=== PATIENT | female | born 1960 | race Caucasian/White ===

== ENCOUNTER 2019-03-25 11:12 | Outpatient (CLI) | payer OTHER, BC, SELFPAY ==
--- NOTE | ~2019-03-25 | MM_ITS ---
EXAMINATION: MM screening [facility] BI w ranjit HISTORY: Screening mammogram TECHNIQUE: Craniocaudal and mediolateral oblique 3-D tomosynthesis images were obtained and synthetic 2-D images were generated. CAD analysis was submitted and interpreted. COMPARISON: 02/19/2018, 01/28/2017, 01/26/2016 BREAST PARENCHYMAL COMPOSITION: The breasts are almost entirely fatty. FINDINGS: Stable masses in the upper outer quadrant of the right breast are consistent with intramamm roger lymph nodes. There is no evidence of suspicious mass, calcification, or architectural distortion to suggest malignancy in either breast. There has been no suspicious interval change. IMPRESSION: 1. No mammographic evidence of malignancy. 2. Recommend routine screening mammography in one year. BI-RADS Category 2: Benign finding(s). Reviewed, dictated and finalized at location A. ANNEALER
== END 2019-03-25 11:13 | disposition home or self-care (01) ==
LOC: ANHIMG 11:17
PROVIDERS: PCP Physician Assistant; Visit Provider Physician Assistant
DX: Z12.31 Encounter for screening mammogram for malignant neoplasm of breast (principal)
CPT/HCPCS: 77063; 77067

== ENCOUNTER 2020-04-20 09:12 | Outpatient (CLI) | payer OTHER, BC, SELFPAY ==
--- NOTE | ~2020-04-20 | MM_ITS ---
EXAMINATION: MM screening [facility] BI w ranjit HISTORY: Screening TECHNIQUE: Craniocaudal and mediolateral oblique 3-D tomosynthesis images were obtained and synthetic 2-D images were generated. CAD analysis was submitted and interpreted. COMPARISON: Comparison to multiple prior studies sequentially, with oldest reviewed study dated 11/19. BREAST PARENCHYMAL COMPOSITION: There are scattered areas of fibroglandular density. FINDINGS: There is no evidence of suspicious mass, calcification, or architectural distortion to sugg est malignancy in either breast. There has been no suspicious interval change. IMPRESSION: 1. No mammographic evidence of malignancy. 2. Recommend routine screening mammography in one year. BI-RADS Category 1: Negative Reviewed, dictated and finalized at location A. [employer]
== END 2020-04-20 09:13 | disposition home or self-care (01) ==
LOC: ANHIMG 09:17
PROVIDERS: PCP Physician Assistant; Visit Provider Physician Assistant
DX: Z12.31 Encounter for screening mammogram for malignant neoplasm of breast (principal)
CPT/HCPCS: 77063; 77067

== ENCOUNTER 2021-04-24 05:09 | Inpatient (IN) | payer OTHER, BC, SELFPAY ==
[2021-04-24] VITALS (19 sets, daily range): BP systolic 118–157; BP diastolic 69–131; PULSE 74–164; RESP 12–18; TEMP 36–36.6; O2SAT 94–99; BMI 42.0
--- NOTE | 2021-04-24 | ECHO_ITS ---
Patient Info Name: Allie Doe Age: 60 years : 1960 Gender: Female Ht: 69 in Wt: 284 lbs BSA: 2.57 m2 HR: 163 bpm BP: 150 / 112 mmHg Heart Rhythm: Atrial Fibrillation Technical Quality: Fair Exam Date: 04/24/2021 3:36 PM Exam Location: [facility] Pulmonary Patient Status: Outpatient Admit Date: 04/24/2021 Staff Ordering Physician: Trey Lozano MD Centrifuge Operator: Cony Astorga RDCS Attending Provider: Trey Lozano MD Exam Type: CA echo doppler color flow Study Info Indications - Afib Complete two-dimensional, color flow and Doppler transthoracic echocardiogram is performed. Summary 1. Complete two-dimensional, color flow and Doppler transthoracic echocardiogram is performed. 2. Left ventricular chamber dimension is normal. 3. Left ventricular systolic function is normal, estimated at 55%. 4. There is mildly increased left ventricular wall thickness. 5. Left atrial chamber dimension is mildly enlarged. 6. There is no aortic valve stenosis. 7. There is mild mitral valve regurgitation. 8. There is trace tricuspid valve regurgitation. 9. Mild pulmonary hypertension, estimated pulmonary arterial systolic pressure is 35 mmHg. Left Ventricle Left ventricular chamber dimension is normal. Left ventricular systolic function is normal, estimated at 55%. There is mildly increased left ventricular wall thickness. The left ventricular diastolic function is indeterminate. Right Ventricle Right ventricular chamber dimension is normal. Right ventricular systolic function is normal. Left Atria Left atrial chamber dimension is mildly enlarged. Right Atria Right atrial chamber dimension is normal. Aortic Valve The aortic valve is not well visualized. There is no aortic valve stenosis. There is trace aortic valve regurgitation. Pulmonic Valve The pulmonic valve is not well visualized. There is trace pulmonic regurgitation. Mitral Valve The mitral valve has normal leaflets. There is mild mitral valve regurgitation. The mitral valve annulus is mildly calcified. Tricuspid Valve The tricuspid valve leaflets are normal. There is trace tricuspid valve regurgitation. Mild pulmonary hypertension, estimated pulmonary arterial systolic pressure is 35 mmHg. Pericardium/Pleural The pericardium appears normal. There is no pericardial effusion. Inferior Vena Cava Dilated inferior vena cava with <50% collapse upon inspiration consistent with elevated right atrial pressure, 10 mmHg. Aorta The aortic root size at the sinus of Valsalva is normal. There is mild aortic atherosclerosis. Left Ventricular Outflow Tract Name Value Normal LVOT 2D LVOT Diameter 2.0 cm LVOT Doppler LVOT Peak Gradient 5 mmHg LVOT Mean Gradient 3 mmHg LVOT VTI 18 cm LVOT VTI/AV VTI Ratio 0.8 LVOT Stroke Volume 55 ml LVOT CO 6.5 l/min LVOT CI 2.5 l/min/m2 Pulmonic Valve --
--- NOTE | ~2021-04-24 | US_ITS ---
EXAMINATION: US venous doppler [facility] DATE: 04/24/2021 12:30 INDICATION: Lower limb edema. TECHNIQUE: Grayscale ultrasound images without and with compression and Doppler ultrasound images of the bilateral lower extremity veins were obtained. COMPARISON: None. FINDINGS: The visualized portions of right common femoral vein, profunda (deep) femoral vein, femoral vein, pop liteal vein, peroneal veins, posterior tibial veins, and greater saphenous vein outflow are patent. The visualized portions of left common femoral vein, profunda femoral vein, femoral vein, popliteal v ein, peroneal veins, posterior tibial veins, and greater saphenous vein outflow are patent. IMPRESSION: 1. No deep venous thrombosis. Reviewed, dictated and finalized at location A. IT SUPPORT COUNSELOR
--- NOTE | ~2021-04-24 | XR_ITS ---
EXAMINATION: XR chest 1V portable DATE: 04/24/2021 05:59 INDICATION: Chest pain. TECHNIQUE: A single frontal view of the chest was obtained. COMPARISON: CT abdomen and pelvis 07/11/2016 FINDINGS: There is mild atelectasis in left lower lung zone. No pleural effusion or pneumothorax. The heart size is normal. IMPRESSION: 1. Mild atelectasis in left lower lung zone. Reviewed, dictated and finalized at location A. DIESEL MOTOR MECHANIC
--- NOTE | ~2021-04-24 | CT_ITS ---
EXAMINATION: CTA chest PE protocol DATE: 04/24/2021 06:52 INDICATION: Shortness of breath. TECHNIQUE: Computed tomography angiography (CTA) of the chest was performed with 100 mL Omnipaque-350 intravenous contrast timed to evaluate the pulmonary arteries. Coronal maximum intensity projection 3D-reconstructions were created by the technologist. Automated exposure control and iterative reconst ruction technique were employed. The dose-length product was 874.36 mGy-cm. COMPARISON: CT abdomen and pelvis 07/11/2016 FINDINGS: The lungs demonstrate smooth septal thickening and groundglass opacities and thickening of the perihilar bronchopulmonary interstitium, consistent with pulmonary edema. There are small pleural effusions. There is a 4 mm nodule in right upper lobe, likely benign. A calcified right lung nodule and calcified right hilar lymph nodes are consistent with old granulomatous disease. There is left at rial enlargement of the heart. There are coronary artery calcifications. The central pulmonary arteri es are enlarged, consistent with pulmonary arterial hypertension. There is no pulmonary embolus. Calc ifications in the spleen are consistent with old granulomatous disease. There are changes of cholecys tectomy. There is mild thoracic spondylosis. IMPRESSION: 1. No pulmonary embolus. 2. Moderate pulmonary edema. 3. Small pleural effusions. 4. Left atrial enlargement of the heart. Reviewed, dictated and finalized at location A. [employer]
--- NOTE | 2021-04-24 05:20 | ECG_ITS ---
Measurements Intervals Theresa Rate: 173 P: SD: 0 QRS: 49 QRSD: 81 T: -38 QT: 248 QTc: 421 Interpretive Statements ATRIAL FIBRILLATION WITH RAPID VENTRICULAR RESPONSE NONSPECIFIC ST & T-WAVE ABNORMALITY ABNORMAL ECG NO PREVIOUS ECG AVAILABLE FOR COMPARISON Electronically Signed On 04-24-2021 14:07:19 LIGHTING FIXTURE INSTALLER by Lorne Gold M.D.
[2021-04-24 05:41] LABS: Basophils Absolute Auto 0.1 K/mm3 (0.0-0.1); Basophils Percent Auto 1.1 % (0.2-1.2); Eosinophils Absolute Auto 0.2 K/mm3 (0-0.3); Eosinophils Percent Auto 2.1 % (0-4.4); Hematocrit 40.2 % (37.0-47.0); Immature Granulocyte Absolute 0.05 K/mm3 (0.00-0.031); Immature Granulocyte Percent A 0.4 % (0-0.5); Lymphocytes Absolute Auto 2.53 K/mm3 (0.9-3.2); Lymphocytes Percent Auto 22.6 % (18.3-44.2); Mean Corpuscular HGB Conc 32.3 g/dl (32-36); Mean Corpuscular Hemoglobin 29.2 pg (26-34); Mean Corpuscular Volume 90.3 fl (80-100); Monocytes Absolute Auto 0.8 K/mm3 (0.1-0.6); Monocytes Percent Auto 7.1 % (2.6-8.5); Neutrophils Absolute Auto 7.5 K/mm3 (1.3-6.7); Neutrophils Percent Auto 66.7 % (45.5-73.1); Platelet Count Result 267 k/mm3 (150-375); Red Blood Count 4.45 M/mm3 (4.2-5.4); Red Cell Distribution Width 13.5 % (11.5-14.5); White Blood Count 11.2 K/mm3 (4.5-10.0)
--- NOTE | 2021-04-24 05:45 | ED.SOB ---
HPI - SOB/Dyspnea General Chief Complaint: Shortness of Breath/Dyspnea Stated Complaint: feel like I'm having a really bad asthma attack Time Seen by Provider: 04/24/21 05:40 Source: patient Mode of arrival: ambulatory Limitations: no limitations History of Present Illness HPI Narrative: Patient is a 60-year-old female complaining of shortness of breath x1 and a half week, accompanied by palpitations this morning. Patient denies any chest pain, abdominal pain, nausea, vomiting, diaphoresis, fever or chills. Patient denies any history of atrial fibrillation. Related Data Home Medications Medication Instructions Recorded Confirmed candesartan 04/24/21 metformin mg PO 04/24/21 Allergies Allergy/AdvReac Type Severity Reaction Status Date / Time No Known Allergies Allergy Verified 04/24/21 05:32 Review of Systems Review of Systems: All systems reviewed & are unremarkable except as noted in HPI and below Constitutional: Constitutional: Denies body ache(s), Denies chills, Denies excessive sweating, Denies fatigue, Denies fever(s), Denies headache(s), Denies lethargy, Denies malaise, Denies weakness and Denies weight loss Eyes: Eyes: Denies blurry vision, Denies change in vision and Denies loss of vision ENT: Denies dizziness, Denies ear discharge, Denies headache(s), Denies lip swelling, Denies epistaxis, Denies nasal congestion, Denies neck pain, Denies throat swelling and Denies tongue swelling Cardiovascular: Cardiovascular: Denies chest pain, Denies chest pain at rest, Denies chest pain with activity, Denies diaphoresis, Denies edema, Denies irregular heart rhythm, Denies lightheadedness and Denies palpitations Respiratory: Respiratory: Denies chest congestion, Denies cough and Denies hemoptysis Gastrointestinal: Gastrointestinal: Denies abdominal pain, Denies melena, Denies hematochezia, Denies diarrhea, Denies nausea, Denies vomiting and Denies hematemesis Musculoskeletal: Musculoskeletal: Denies abnormal gait, Denies deformity, Denies joint swelling, Denies limited range of motion, Denies neck pain and Denies numbness Neurologic: Denies Abnormal speech present, Denies abnormal gait, Denies confusion, Denies dizziness, Denies headache(s), Denies focal weakness, Denies loss of vision, Denies numbness, Denies Other visual disturbances, Denies Sensory deficit (Neuro) and Denies weakness Psychiatric: Psychiatric: Denies confusion, Denies depression, Denies auditory hallucinations, Denies homicidal ideation and Denies suicidal ideation Endocrine: Endocrine: Denies cold intolerance, Denies excessive sweating, Denies fatigue, Denies heat intolerance and Denies palpitations Hematologic/Lymphatic: Hematologic/Lymphatic: Denies easy bleeding and Denies easy bruising Allergic/Immunologic: Allergic/Immunologic: Denies lip swelling, Denies throat swelling and Denies tongue swelling FOR[facility]LY [facility], [facility] Family History Family History (Updated 10/19/10 @ 09:39 by DOCTOR UNKNOWN) Other Diabetes mellitus Social History Social History Smoking status: Never smoker Alcohol intake: current Comments Past medical history: Hypertension, diabetes Family history: Atrial fib, diabetes Social history: Non-smoker no EtOH or drug use Exam Const: General: cooperative, healthy appearing, comfortable, no acute distress, well developed, alert and awake; No confusion Orientation/consciousness: oriented to person, oriented to place, oriented to time, patient oriented x3 and No confusion Limitations: no limitations HENMT: Head: normal to inspection, normocephalic and atraumatic Ears: hearing grossly normal bilaterally, TM normal on the right and TM normal on the left General nose exam: Normal external nose present, Normal nares present and No nasal discharge present Face and sinus: normal facial exam Mouth: Yes Normal oral and palatal mucosa present, Yes lip normal, Yes tongue normal and Yes oropharynx normal Throat: posterior oropharynx n
[2021-04-24 05:49] LABS: Alanine Aminotransferase 137 U/L (4-35); Albumin Level 4.1 g/dL (3.5-5.1); Alkaline Phosphatase 85 U/L (38-126); Anion Gap 10 mmol/L (8-16); Aspartate Amino Transferase 84 U/L (14-36); Bilirubin,Total 0.6 mg/dL (0.2-1.3); Blood Urea Nitrogen 15 mg/dL (7-17); Calcium 9.4 mg/dL (8.4-10.2); Carbon Dioxide 23 mmol/L (22-30); Chloride 108 mmol/L (98-107); Estimated CRCL calculation 97 ml/min; Estimated Glomerular Filt Rate > 60; Glucose 141 mg/dL (65-110); Potassium 3.7 mmol/L (3.4-5.0); Sodium 141 mmol/L (137-145)
[2021-04-24] MEDS: LACTATED RINGERS 1,000 ML 999 ML IV CONT (05:49)
[2021-04-24] MEDS: dilTIAZem HCl INJ 25 MG/5 ML VIAL 20 MG IV PUSH (05:50)
--- NOTE | 2021-04-24 05:52 | PC.NURSE ---
per EDP tiffanei single bolus of cardizem to be given at this time, no drip.
[2021-04-24 06:13] LABS: Prothrombin Time 12.6 Seconds (11.1-14.7)
[2021-04-24 06:14] LABS: Partial Thromboplastin Time 32.3 SECONDS (22.3-36.8)
[2021-04-24 06:16] LABS: D Dimer 0.93 ug/mL (<0.48)
[2021-04-24 06:18] LABS: Troponin I < 0.012 ng/mL (0.000-0.034)
[2021-04-24 06:38] LABS: SARS-CoV-2 RNA PCR Negative
[2021-04-24] MEDS: dilTIAZem 100 MG/100 ML 100 MG/100 ML BAG IV CONT (07:09)
[2021-04-24] MEDS: FUROSEMIDE INJ 40 MG/4 ML VIAL IV PUSH ×2 (07:30→16:26)
[2021-04-24] MEDS: dilTIAZem HCl INJ 25 MG/5 ML VIAL 10 MG IV PUSH (07:30)
[2021-04-24] MEDS: dilTIAZem 100 MG/100 ML 100 MG/100 ML BAG 10 MG IV CONT ×2 (07:48→12:00)
--- NOTE | 2021-04-24 08:46 | ADMGEN ---
This patient, Allie Doe, was admitted to IMU Room 206-01. Patient/family oriented to hospital policies and general routines including ID bracelet, bed and alarms, visiting hours, pain management, procedures, bathroom and other care routines, personal items, smoking policy, room service/diet, and visiting hours. Information on how to activate the Rapid Response Team has been discussed. Patient/Family are encouraged to report perceived risks to care and to ask questions if they do not understand what they are told or what they should do.
--- NOTE | 2021-04-24 10:47 | PM.IMHP ---
H&P: HPI History of Present Illness Date/Time: PATIENT ADMITTED UNDER OBSERVATION STATUS 04/24/21 10:47 Chief Complaint: Shortness of breath Narrative: 60yo female with HTN and pre-DM here for shortness of breath and found to have AFib/RVR. Patient states her symptoms began about 10 days prior to admission. She initially had explosive diarrhea but this has resolved. No melena or hematochezia. She had a colonoscopy 6 years ago that was negative. She is up-to-date on her mammograms. For the next few days she had myriad of symptoms including belching, chest tightness and shortness of breath. She is also having difficulty with lying flat because of shortness of breath. No weight changes. No night sweats, fever or chills. Symptoms improved initially but then worsened over the past day or so again with the chest tightness that was worse with laying flat. No anosmia or dysgeusia. She is unvaccinated against COVID. No history of coronary disease. She has never had a stress test. She has pre diabetes and hypertension but no hyperlipidemia and no tobacco abuse. She does mention that both parents had AFib. She does note that she has had some mild pedal edema left greater than right. No calf pain. Because of the shortness of breath and chest tightness, she presented to the emergency room for evaluation. In the ED, blood pressure is 157/131 and her pulse was 160. Chest x-ray showed mild atelectasis in the left lower lung zone. D-dimer was positive and CTA was performed which showed no PE but moderate pulmonary edema, small pleural effusions and left atrial enlargement. LFTs are mildly elevated. COVID was negative. EKG showing AFib with RVR rate [address] T wave changes. She was given Lasix IV once. Was started on diltiazem drip and admitted for further care. Her heart rate remains poorly controlled. She denies palpitations and actually feels better now. Review of Systems Review of Systems: All systems reviewed & are unremarkable except as noted in HPI and below PMFSH Past Medical History Medical History HTN (hypertension), benign Pre-diabetes Surgical History Surgical History Hx of section with C/S x1. Hx of cholecystectomy Hx of nasal polypectomy Hx of tonsillectomy Family History Family History Mother Atrial arrhythmia Father Atrial arrhythmia Lymphoma Grandparent Diabetes mellitus Father No problems noted. Social History Social History Social History: Lifelong nonsmoker. Rarely drinks alcohol. No drug use. Lives at home with her . Full code. She nominates her to be the individual who would make medical decisions for her if she is unable. Smoking status: Never smoker Alcohol intake: never Substance use: never Spiritual care concerns: No Meds Home Medications and Allergies Home Medications Medication Instructions Recorded Confirmed Type candesartan 32 mg PO DAILY 04/24/21 04/24/21 History metformin 1,000 mg PO 1700 04/24/21 04/24/21 History Allergies Allergy/AdvReac Type Severity Reaction Status Date / Time No Known Allergies Allergy Verified 04/24/21 05:32 Vital Signs Vital Signs - 24 hr 04/24/21 05:18 04/24/21 06:58 04/24/21 07:09 Temperature 97.0 F L Pulse Rate 160 H 149 H 164 H Respiratory Rate 12 18 Blood Pressure 157/131 H 146/114 H 139/108 H Pulse Oximetry 98 98 04/24/21 07:35 04/24/21 07:48 04/24/21 08:14 Temperature Pulse Rate 150 H 156 H 146 H Respiratory Rate 17 16 Blood Pressure 150/100 H 150/100 H Pulse Oximetry 98 95 Exam Narrative: AF 97.0 150/100 146 16 95% ra Gen - well-nourished, well-developed female in no acute respiratory distress who is
[2021-04-24 12:19] LABS: Hemoglobin A1C 5.3 % (<5.7)
[2021-04-24 12:23] LABS: Troponin I < 0.012 ng/mL (0.000-0.034)
[2021-04-24 12:54] LABS: Hepatitis B Surface Antigen Negative (Negative)
[2021-04-24 13:00] LABS: HAV RESULT Negative (Negative); Hepatitis B Core IgM Result Negative (Negative)
--- NOTE | 2021-04-24 13:02 | PM.CNCAR ---
Assessment and Plan Assessment and plan (1) Atrial fibrillation with RVR: Code(s): I48.91 - Unspecified atrial fibrillation Status: Acute Assessment and Plan: Symptomatic refractory probable recent onset atrial fibrillation with rapid ventricular response although precise duration remains unknown prior to admission. Increase diltiazem infusion to 15 milligrams/hour for proved heart rate control, increase metoprolol 37.5 mg q.8 hours. Given refractory AFib with poorly controlled heart rate discussed management options including medications and or electrical cardioversion to restore sinus rhythm. Given unknown duration of atrial fibrillation DULCE guided cardioversion to exclude intracardiac thrombus prior to cardioversion advised. Patient and daughter verbalized understanding and agreed to proceed with the plan of care as outlined. NPO after midnight for DULCE guided cardioversion. Patient must receive her Eliquis and oral metoprolol. Plan to hold diltiazem prior to cardioversion. 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 We discussed cannot entirely exclude underlying CAD, however, there is no evidence of myocardial infarction or ischemia at present. Will give additional potassium chloride 40 mg p.o. x1 today. Check BMP magnesium in a.m.. Pathophysiology of atrial fibrillation, risks, benefits, and alternatives to plan of care including embolic stroke risk associated atrial fibrillation and risk reduction was systemic anticoagulation and associated bleeding risk. CHADS2 Vasc score at least 3. (2) Acute pulmonary edema: Code(s): J81.0 - Acute pulmonary edema Status: Acute Assessment and Plan: Continue IV diuresis. Accurate input and output, daily weight. Monitor renal function electrolytes. Provided patient is stable for DULCE guided cardioversion will plan to proceed tomorrow. (3) HTN (hypertension), benign: Code(s): I10 - Essential (primary) hypertension Status: Acute Assessment and Plan: BP remains elevated further adjustment medical therapy. Add ARB. Renal function intact. (4) Elevated LFTs: Code(s): R79.89 - Other specified abnormal findings of blood chemistry Status: Acute Assessment and Plan: Likely secondary to hepatic congestion decompensated heart failure. Per primary service. (5) Morbid obesity with BMI of 40.0-44.9, adult: Code(s): E66.01 - Morbid (severe) obesity due to excess calories; Z68.41 - Body mass index [BMI] 40.0-44.9, adult Status: Acute Assessment and Plan: Less than modification counseling. Apnea link overnight to screen for [place]. History of Present Illness History of Present Illness Consult date/time: Date of service: 04/24/21 13:02 Cardiology consultation at the request of Dr. Lozano of the [facility] service for opinion regarding atrial fibrillation with rapid ventricular response Requesting physician: Trey Lozano MD Consult reason: atrial fibrillation Reason For Visit: Atrial fib with RVR/acute pulmonary edema Narrative: Patient is a very pleasant 52-year-old female with a past medical history significant for hypertension, reported ?pre diabetes?, morbid obesity who was in her usual state of health when she noted for the past 10-14 days began to experience more fatigue, progressive shortness of breath, belching, and transient diarrhea. Her predominant symptoms were shortness of breath decreasing activity tolerance along with progressive orthopnea, lower extremity edema abdominal fullness finding herself sleeping more upright in a chair to remain comfortable. She denies fevers, chills. She noted occasional tightness worse lying down in her chest which has significantly improved. She notes occasional fluttering sensation but on a clear appreciation for a rapid and irregular heart
[2021-04-24] MEDS: METOPROLOL TARTRATE 25 MG TABLET PO (13:03)
[2021-04-24] MEDS: APIXABAN 5 MG TABLET PO ×2 (13:03→20:18)
[2021-04-24 13:12] LABS: Hepatitis C Virus Antibody Negative (Negative)
[2021-04-24 13:16] LABS: Glucose Point of Care 135 mg/dl (65-105)
[2021-04-24] MEDS: dilTIAZem 100 MG/100 ML 100 MG/100 ML BAG 15 MG IV CONT ×2 (16:28→23:06)
[2021-04-24 16:44] LABS: Glucose Point of Care 103 mg/dl (65-105)
[2021-04-24] MEDS: POTASSIUM CHLORIDE 20 MEQ TABLET 40 MEQ PO (18:17)
[2021-04-24 19:53] LABS: Glucose Point of Care 122 mg/dl (65-105)
--- NOTE | 2021-04-24 21:10 | PCRCNOTE ---
RT asked patient if they would participate in sleep apnea study test and explained the reason for testing. Patient stated they do not want to receive a sleep study test here but would be wiling to make arrangements for a different setting at another time.
[2021-04-25] VITALS (20 sets, daily range): BP systolic 117–160; BP diastolic 72–120; PULSE 74–147; RESP 16–18; TEMP 35.8–36.9; O2SAT 92–98
[2021-04-25 04:29] LABS: Basophils Absolute Auto 0.1 K/mm3 (0.0-0.1); Eosinophils Absolute Auto 0.3 K/mm3 (0-0.3); Eosinophils Percent Auto 3.2 % (0-4.4); Hematocrit 37.4 % (37.0-47.0); Hemoglobin 11.9 g/dL (12.0-15.0); Immature Granulocyte Absolute 0.05 K/mm3 (0.00-0.031); Immature Granulocyte Percent A 0.5 % (0-0.5); Lymphocytes Absolute Auto 2.38 K/mm3 (0.9-3.2); Lymphocytes Percent Auto 24.6 % (18.3-44.2); Mean Corpuscular HGB Conc 31.8 g/dl (32-36); Mean Corpuscular Hemoglobin 29.9 pg (26-34); Mean Platelet Volume 11.7 fl (7.4-10.4); Monocytes Absolute Auto 0.9 K/mm3 (0.1-0.6); Monocytes Percent Auto 8.8 % (2.6-8.5); Neutrophils Percent Auto 61.9 % (45.5-73.1); Platelet Count Result 231 k/mm3 (150-375); Red Blood Count 3.98 M/mm3 (4.2-5.4); Red Cell Distribution Width 13.9 % (11.5-14.5); White Blood Count 9.7 K/mm3 (4.5-10.0)
[2021-04-25 04:40] LABS: Alanine Aminotransferase 117 U/L (4-35); Albumin Level 3.5 g/dL (3.5-5.1); Alkaline Phosphatase 70 U/L (38-126); Anion Gap 7 mmol/L (8-16); Aspartate Amino Transferase 54 U/L (14-36); Bilirubin,Total 0.7 mg/dL (0.2-1.3); Blood Urea Nitrogen 14 mg/dL (7-17); Calcium 8.6 mg/dL (8.4-10.2); Carbon Dioxide 27 mmol/L (22-30); Chloride 108 mmol/L (98-107); Estimated CRCL calculation 109 ml/min; Estimated Glomerular Filt Rate > 60; Glucose 121 mg/dL (65-110); Magnesium 1.9 mg/dL (1.6-2.3); Potassium 3.9 mmol/L (3.4-5.0); Sodium 142 mmol/L (137-145)
[2021-04-25] MEDS: dilTIAZem 100 MG/100 ML 100 MG/100 ML BAG 15 MG IV CONT (05:38)
[2021-04-25 08:24] LABS: Glucose Point of Care 127 mg/dl (65-105)
[2021-04-25] MEDS: APIXABAN 5 MG TABLET PO ×2 (08:25→20:14)
--- NOTE | 2021-04-25 09:55 | PM.CNCAR ---
History of Present Illness History of Present Illness Consult date/time: 04/25/21 09:55 DATE OF CONSULT: 04/25/2021 REASON FOR CONSULT: AFib with RVR REQUESTING PHYSICIAN:Jessee Armenta MD CHIEF COMPLAINT: HPI: 60-year-old female with hypertension, type 2 diabetes mellitus. Patient presented to [facility] on EKG at presentation which I personally evaluated showed atrial fibrillation with RVR, ventricular rate 173 beats per minute. Serial troponins negative. COVID-19 negative. TSH within normal limits. Chest x-ray showed Mild atelectasis in left lower lung zone. CT chest reported No pulmonary embolus, moderate pulmonary edema, small pleural effusions. Echo perform on 04/24/2021 showed mild LVH, LVEF 55%, mild LVE, mild MR, RVSP 35 mmHg. Reason For Visit: Atrial fib with RVR/acute pulmonary edema Review of Systems Review of Systems: General: Negative for fever, chills, fatigue Psychological: Negative for anxiety, depression Ophthalmic: negative for loss of vision ENT: Negative for epistaxis, headaches Allergy and immunology: Negative for hives, nasal congestion Hematologic and lymphatic: Negative for overt bleeding problems Endocrine: Negative for hot flashes, palpitations Respiratory: Negative for cough, hemoptysis Cardiovascular: Negative for chest pain, shortness of breath, leg swelling, palpitations, dizziness, syncope Gastrointestinal: Negative for abdominal pain, nausea, vomiting, hematochezia Musculoskeletal: Negative for myalgia, joint pains Neurological: Negative for weakness Dermatological: Negative for rash, skin discoloration PMFSH Past Medical History Medical History HTN (hypertension), benign Pre-diabetes Surgical History Surgical History Hx of section with C/S x1. Hx of cholecystectomy Hx of nasal polypectomy Hx of tonsillectomy Family History Family History Mother Atrial arrhythmia Father Atrial arrhythmia Lymphoma Grandparent Diabetes mellitus Father No problems noted. Social History Social History Social History: Lifelong nonsmoker. Rarely drinks alcohol. No drug use. Lives at home with her . Full code. She nominates her to be the individual who would make medical decisions for her if she is unable. Smoking status: Never smoker Alcohol intake: never Substance use: never Spiritual care concerns: No Meds Home Medications and Allergies Home Medications Medication Instructions Recorded Confirmed Type candesartan 32 mg PO DAILY 04/24/21 04/24/21 History metformin 1,000 mg PO 1700 04/24/21 04/24/21 History Allergies Allergy/AdvReac Type Severity Reaction Status Date / Time No Known Allergies Allergy Verified 04/24/21 05:32 Vital Signs Vital Signs - 24 hr 04/24/21 10:00 04/24/21 11:49 04/24/21 12:00 Temperature 36.6 C Pulse Rate 157 H 137 H 163 H Respiratory Rate 18 Blood Pressure 150/112 H Pulse Oximetry 98 04/24/21 14:00 04/24/21 16:00 04/24/21 16:40 Temperature 36.1 C L Pulse Rate 135 H 125 H 74 Respiratory Rate 16 18 Blood Pressure 143/88 H Pulse Oximetry 97 96 04/24/21 18:00 04/24/21 20:00 04/24/21 20:05 Temperature 36.0 C L Pulse Rate 138 H 122 H 107 H Respiratory Rate 18 Blood Pressure 118/69 Pulse Oximetry 96 04/24/21 20:18 04/24/21 20:35 04/24/21 22:00 Temperature Pulse Rate 126 H 122 H Respiratory Rate Blood Pressure Pulse Oximetry 94 04/24/21 23:06 04/25/21 00:00 04/25/21 02:00 Temperature 36.0 C L Pulse Rate 102 H 108 H 104 H Respiratory Rate 18 Blood Pressure 123/85 Pulse Oximetry 96 04/25/21 04:00 04/25/21 05:11 04/25/21 05:37 Temperature 35.8 C L Pulse Rate 131 H 122 H 119 H Respiratory Rate 18
--- NOTE | 2021-04-25 10:49 | WPDMODSED ---
Moderate Sedation Note-Pt Data Patient Data Diagnosis: Atrial fibrillation with rapid ventricular response Present Complaint: Fatigue Procedure to be performed/Plan: Transesophageal echocardiogram guided elective electrical cardioversion Allergies Allergy/AdvReac Type Severity Reaction Status Date / Time No Known Allergies Allergy Verified 04/24/21 05:32 Home Medications Medication Instructions Recorded Confirmed Type candesartan 32 mg PO DAILY 04/24/21 04/24/21 History metformin 1,000 mg PO 1700 04/24/21 04/24/21 History Current Medications: Active Medications Apixaban (Apixaban 5 Mg Tablet) 5 mg PO Q12HR [facility] Last Admin: 04/25/21 08:25 Dose: 5 mg Documented by: Furosemide (Furosemide Inj 40 Mg/4 Ml Vial) 40 mg IV PUSH BID [facility] Last Admin: 04/24/21 16:26 Dose: 40 mg Documented by: Diltiazem HCl (Cardizem 100 Mg/100 Ml) 100 mg in 100 mls @ 15 mls/hr IV CONT .[id number] [facility] Last Admin: 04/25/21 05:38 Dose: 15 mg/hr, 15 mls/hr Documented by: Metoprolol Tartrate 12.5 mg/ (Metoprolol Tartrate 25 mg) 37.5 mg PO Q8HR [facility] Last Admin: 04/25/21 05:37 Dose: 37.5 mg Documented by: Perflutren Lipid Microsphere (Perflutren Lipid Microspheres 1.5 Ml Vial Diluted To 10 Ml Total Volume) 0 ml IV PUSH ONCE PRN; Protocol PRN Reason: adequate visualization Sedation/Anesthesia: No previous sedation/anesthesia problems (including family history). [facility] Past Medical History Medical History HTN (hypertension), benign Pre-diabetes Surgical History Surgical History Hx of section with C/S x1. Hx of cholecystectomy Hx of nasal polypectomy Hx of tonsillectomy Family History Family History Mother Atrial arrhythmia Father Atrial arrhythmia Lymphoma Grandparent Diabetes mellitus Father No problems noted. Social History Social History Social History: Lifelong nonsmoker. Rarely drinks alcohol. No drug use. Lives at home with her . Full code. She nominates her to be the individual who would make medical decisions for her if she is unable. Smoking status: Never smoker Alcohol intake: never Substance use: never Spiritual care concerns: No Mod Sed Physical Exam Physical Exam Pre Procedural Exam: Normal: Appearance, Eyes, Ears, Nose, Neck (Neck supple, normal range of motion), Throat (Posterior hypopharynx clear, nonerythematous), Airway (Normal anatomy, no obstruction), Lungs (Clear to auscultation bilaterally), Heart Size, Neuro Exam, Abdomen, Liver, Extremities and Skin and Variation: Heart Rate (Tachycardic) and Heart Rhythm (Irregularly irregular) Hours since solid foods: 12 Hours since liquid intake: 12 Mallampati Classification: class III Internal Medicine - PN: Obj Da Vital Signs Vital Signs: Vital Signs - 24 hr 04/24/21 11:49 04/24/21 12:00 04/24/21 14:00 Temperature 36.6 C Pulse Rate 137 H 163 H 135 H Respiratory Rate 18 Blood Pressure 150/112 H Pulse Oximetry 98 04/24/21 16:00 04/24/21 16:40 04/24/21 18:00 Temperature 36.1 C L Pulse Rate 125 H 74 138 H Respiratory Rate 16 18 Blood Pressure 143/88 H Pulse Oximetry 97 96 04/24/21 20:00 04/24/21 20:05 04/24/21 20:18 Temperature 36.0 C L Pulse Rate 122 H 107 H 126 H Respiratory Rate 18 Blood Pressure 118/69 Pulse Oximetry 96 04/24/21 20:35 04/24/21 22:00 04/24/21 23:06 Temperature Pulse Rate 122 H 102 H Respiratory Rate Blood Pressure Pulse Oximetry 94 04/25/21 00:00 04/25/21 02:00 04/25/21 04:00 Temperature 36.0 C L Pulse Rate 108 H 104 H 131 H Respiratory Rate 18 Blood Pressure 123/85 Pulse Oximetry 96 04/25/21 05:11 04/25/21 05:37 04/25/21 05:38 Temperature 35.8 C L Pulse Rate 122 H 119 H 11
--- NOTE | 2021-04-25 12:11 | WPDTECDV ---
DULCE with Cardioversion Date of procedure: 04/25/21 Procedure Type: Transesophageal echocardiogram guided elective electrical cardioversion Diagnosis: Atrial fibrillation with rapid ventricular response Indications: Atrial fibrillation with rapid ventricular response Description of Procedure: Brief history present illness: Patient is a very pleasant 60-year-old female with past medical history significant for hypertension, prediabetes, morbid obesity who presented to the emergency department with complaints of fatigue, shortness of breath, belching transient chest tightness, orthopnea and lower extremity edema found to be in atrial fibrillation with very rapid ventricular response refractory to medical therapy started on systemic anticoagulation and referred for transesophageal echocardiogram-guided elective electrical cardioversion in attempt to restore sinus rhythm. Procedure in detail: After verbal and written informed consent was obtained the patient risks, benefits, and alternatives explained in detail the patient agreed to proceed with the plan of care as outlined above. Patient was evaluated at bedside in the [facility] procedure room. On examination, neck was supple with normal range of motion, no restrictions to opening of the oral cavity, jaw angle and posterior hypopharynx was clear. Lungs were clear to auscultation. Patient was placed in appropriate 30 to 45 degree angle in a supine, slight left lateral decubitus position. Patient was monitored throughout the study with telemetry, oxygen saturation, end-tidal CO2 monitoring, blood pressure, heart rate, and respirations. Anterior and posterior defibrillator pads placed in the appropriate positions. The posterior hypopharynx was then locally anesthetized using repeated administration of Hurricaine spray as well as gargled viscous lidocaine. After local anesthetic of the posterior hypopharynx was achieved and the oral bite block placed, moderate sedation was administered. Through the oral bite block, the transesophageal echocardiogram probe was advanced into the posterior hypopharynx and into the esophagus easily and without complication. Multiple, multiplanar echocardiographic images were obtained in multiple standard re-projections. Pulsed wave, continuous-wave, and color-flow Doppler were utilized in conjunction with this study. At the conclusion of the study, the transesophageal echocardiogram probe was removed easily and without complication. Patient tolerated the procedure well without difficulty. Patient was in atrial fibrillation throughout the study. Sedation: Moderate Sedation/Anesthesia administration: Patient denied previous intolerance or complications with anesthesia/sedation. Please see sedation note for documentation of the pre-procedure physical examination. As noted above, after adequate local anesthesia of the posterior hypopharynx was achieved, a total of 5mg intravenous Versed and a total of 125 mcg intravenous Fentanyl in multiple divided doses was utilized for moderate sedation. Sedation start time was 1102 and end time was 1118 for a total of 16 minutes [id number] intra-procedure time. Sedation was administered by a qualified observer Trinh Ulloa RN under my supervision with intra-procedure [id number] observation and management throughout the entirety of the procedure. There were no other issues or complications and patient tolerated the procedure well and sedation protocol well and I was present for the entirety. Findings: FINDINGS: LEFT VENTRICLE: Size and systolic function were within normal limits without wall motion abnormalities with ejection fraction of 55%. Mild concentric left ventricular hypertrophy. RIGHT VENTRICLE: Size and systolic function within normal limits. LEFT ATRIUM: [id number] enlarged RIGHT ATRIUM: Normal size. INTERATRIAL SEPTUM: Interatrial septum is anatomically normal without evidence of shunt with color-flow Doppler nor
--- NOTE | 2021-04-25 12:12 | PM.IMPN ---
Progress Note: A&P Assessment and Plan (1) Atrial fibrillation with RVR: Code(s): I48.91 - Unspecified atrial fibrillation Status: Acute Assessment and Plan: Patient presents with shortness of breath and chest tightness and found to have AFib with RVR. Also found to have markedly elevated blood pressure probably contributing to her symptoms. She was started on a Cardizem drip and oral metoprolol added. Echo showing EF 55%, indeterminate diastolic function, LAE, mild valvular disease and mild pulmonary HTN. TSH normal. COVID is negative. D-dimer is positive but CTA negative for PE and LE doppler negative for DVT. [id number] score is 3. Continue Diltiazem IV and oral metoprolol. Cardiology following and appreciate their input. Continue Eliquis. Plan for cardioversion for later this morning. (2) Acute pulmonary edema: Code(s): J81.0 - Acute pulmonary edema Status: Acute Assessment and Plan: CTA showing pulmonary edema. Suspect patient has fluid overload related to her AFib with RVR. This could explain the pedal edema and elevated liver enzymes from hepatic congestion. She was started on Lasix IV with good clinical response. (3) Elevated LFTs: Code(s): R79.89 - Other specified abnormal findings of blood chemistry Status: Acute Assessment and Plan: AST and ALT are mildly elevated. Hepatitis panel negative. Repeat LFTs trending down. Suspect related to hepatic congestion. Follow. (4) Pre-diabetes: Code(s): R73.03 - Prediabetes Status: Acute Assessment and Plan: A1c 5.3. Patient has prediabetes on metformin. Continue sliding scale protocol. (5) HTN (hypertension), benign: Code(s): I10 - Essential (primary) hypertension Status: Acute Assessment and Plan: Blood pressure markedly elevated on admission. Most likely related to the AFib, stress and possibly poorly controlled HTN. No recent prior blood pressures to compare. Continue metoprolol. Consider advancing metoprolol or resuming candesartan if needed. Subjective Date/time seen: 04/25/21 1000 Interval history: 60yo female with pre-DM and HTN here for shortness of breath and found to have AFib/RVR. Patient feels well today. Denies feeling weak. No nausea or vomiting. No chest pain or shortness of breath. Exam Narrative: AF 97.5 119/84 77 16 92% ra Gen - NARD Chest - CTA bilaterally, nml RR CV - irregularly irregular, tachycardic Abd - Soft, obese, NT Ext - No pedal edema Psych - Nml mood and affect Skin - Warm and dry Objective Data Vital Signs Vital Signs: Vital Signs - 24 hr 04/24/21 14:00 04/24/21 16:00 04/24/21 16:40 Temperature 97 F L Pulse Rate 135 H 125 H 74 Respiratory Rate 16 18 Blood Pressure 143/88 H Pulse Oximetry 97 96 04/24/21 18:00 04/24/21 20:00 04/24/21 20:05 Temperature 96.8 F L Pulse Rate 138 H 122 H 107 H Respiratory Rate 18 Blood Pressure 118/69 Pulse Oximetry 96 04/24/21 20:18 04/24/21 20:35 04/24/21 22:00 Temperature Pulse Rate 126 H 122 H Respiratory Rate Blood Pressure Pulse Oximetry 94 04/24/21 23:06 04/25/21 00:00 04/25/21 02:00 Temperature 96.8 F L Pulse Rate 102 H 108 H 104 H Respiratory Rate 18 Blood Pressure 123/85 Pulse Oximetry 96 04/25/21 04:00 04/25/21 05:11 04/25/21 05:37 Temperature 96.5 F L Pulse Rate 131 H 122 H 119 H Respiratory Rate 18 Blood Pressure 133/89 Pulse Oximetry 94 04/25/21 05:38 04/25/21 06:00 04/25/21 08:00 Temperature 97.5 F L Pulse Rate 119 H 106 H 114 H Respiratory Rate 16 Blood Pressure 128/80 Pulse Oximetry 94 04/25/21 11:20 04/25/21 11:30 04/25/21 12:00 Temperature Pulse Rate 74 75 77 Respiratory Rate 16 16 16 Blood Pressure 160/120 H 120/78 119/84 Pulse Oximetry 94 92 92 Intake/Output Intake/Output: Intake & Output 04/22/21 04/23/21 04/24/21 04/25/21 23:59 23:59 23:59 23:
[2021-04-25 13:21] LABS: Glucose Point of Care 101 mg/dl (65-105)
[2021-04-25] MEDS: FUROSEMIDE INJ 40 MG/4 ML VIAL IV PUSH ×2 (13:34→20:14)
[2021-04-25 16:25] LABS: Glucose Point of Care 113 mg/dl (65-105)
[2021-04-25 20:30] LABS: Glucose Point of Care 129 mg/dl (65-105)
[2021-04-26] VITALS (11 sets, daily range): BP systolic 109–147; BP diastolic 69–89; PULSE 77–113; RESP 16–22; TEMP 36.4–36.7; O2SAT 94–99
--- NOTE | 2021-04-26 | ECG_ITS ---
Measurements Intervals [place] Rate: 75 P: 31 IA: 148 QRS: 52 QRSD: 97 T: 26 QT: 396 QTc: 444 Interpretive Statements SINUS RHYTHM POSSIBLE LEFT ATRIAL ENLARGEMENT [-0.1mV P WAVE IN V1/V2] NONSPECIFIC T-WAVE ABNORMALITY BORDERLINE ECG COMPARED TO ECG 04/24/2021 05:19:39 SINUS RHYTHM NOW PRESENT Electronically Signed On 04-26-2021 13:30:41 [employer] by Lorne Gold M.D.
[2021-04-26 00:16] LABS: Glucose Point of Care 136 mg/dl (65-105)
[2021-04-26 05:11] LABS: Alanine Aminotransferase 100 U/L (4-35); Albumin Level 3.6 g/dL (3.5-5.1); Alkaline Phosphatase 70 U/L (38-126); Anion Gap 3 mmol/L (8-16); Aspartate Amino Transferase 37 U/L (14-36); Bilirubin,Total 0.8 mg/dL (0.2-1.3); Blood Urea Nitrogen 14 mg/dL (7-17); Calcium 8.3 mg/dL (8.4-10.2); Carbon Dioxide 32 mmol/L (22-30); Chloride 103 mmol/L (98-107); Estimated CRCL calculation 95 ml/min; Estimated Glomerular Filt Rate > 60; Glucose 109 mg/dL (65-110); Potassium 3.6 mmol/L (3.4-5.0); Sodium 138 mmol/L (137-145)
[2021-04-26] MEDS: METOPROLOL TARTRATE 50 MG TAB PO (08:34)
[2021-04-26] MEDS: APIXABAN 5 MG TABLET PO (08:34)
[2021-04-26] MEDS: FUROSEMIDE INJ 40 MG/4 ML VIAL IV PUSH (08:34)
[2021-04-26 09:15] LABS: Glucose Point of Care 113 mg/dl (65-105)
--- NOTE | 2021-04-26 11:45 | PM.PNCARD ---
Progress Note: A&P Assessment and Plan (1) Atrial fibrillation with RVR: Code(s): I48.91 - Unspecified atrial fibrillation Status: Acute Assessment and Plan: Successful DULCE guided cardioversion restoring sinus rhythm maintained overnight. Increase metoprolol to 75 mg p.o. q.12 hours. Continue Eliquis 5 mg q.12 hours. Change to p.o. Lasix 20 mg daily. CHADS2 Vasc score at least 3. Follow-up with Dr. Gold in 4 weeks. Stable for discharge home. Patient counseled not to discontinue anticoagulation unless advised but particularly over the next 30 days post cardioversion. Patient and at bedside verbalized understanding all questions answered to their satisfaction. Disposition per hospitalist service. Counseled to monitor bleeding in the balance of embolic stroke risk reduction versus bleeding risk in general with anticoagulation in atrial fibrillation. They understand. If head injury, falls or bleeding present to ER immediately for evaluation. (2) Acute pulmonary edema: Code(s): J81.0 - Acute pulmonary edema Status: Acute Assessment and Plan: Resolved. Change to p.o. Lasix 20 mg daily. EF preserved. (3) HTN (hypertension), benign: Code(s): I10 - Essential (primary) hypertension Status: Acute Assessment and Plan: BP remains elevated further adjustment medical therapy. Resume ARB. (4) Elevated LFTs: Code(s): R79.89 - Other specified abnormal findings of blood chemistry Status: Acute Assessment and Plan: Likely secondary to hepatic congestion decompensated heart failure. Per primary service. (5) Morbid obesity with BMI of 40.0-44.9, adult: Code(s): E66.01 - Morbid (severe) obesity due to excess calories; Z68.41 - Body mass index [BMI] 40.0-44.9, adult Status: Acute Assessment and Plan: Patient declined Apnea link overnight to screen for [place]. Will discuss as outpatient Subjective Date/time seen: Date of service: 04/26/21 11:45 Follow-up for atrial fibrillation with rapid ventricular response Patient doing very well. Denies chest pain, dizziness, shortness of breath or palpitations. Maintaining sinus rhythm overnight. Tolerating medications. No concerns. at bedside. Patient ready to go home. Review of Systems Review of Systems: All systems reviewed & are unremarkable except as noted in HPI and below Constitutional: Constitutional: Reports as per HPI, Reports no additional constitutional complaints, Reports difficulty sleeping and Reports fatigue Eyes: Eyes: Reports as per HPI and Reports no additional eye complaints ENT: Reports system reviewed and no additional complaints, except as documented and Reports as per HPI Cardiovascular: Cardiovascular: Reports as per HPI, Reports no additional cardiovascular complaints, Reports chest pain, Reports pedal edema, Reports palpitations, Reports dyspnea, Reports dyspnea on exertion and Reports orthopnea Respiratory: Respiratory: Reports as per HPI, Reports no additional respiratory complaints, Reports dyspnea, Reports dyspnea on exertion and Reports wheezing Gastrointestinal: Gastrointestinal: Reports as per HPI, Reports no additional gastrointestinal complaints, Denies abdominal pain, Denies melena, Denies hematochezia, Denies coffee ground emesis, Reports diarrhea and Denies vomiting Genitourinary: Genitourinary: Reports as per HPI Musculoskeletal: Musculoskeletal: Reports no additional musculoskeletal complaints and Reports as per HPI Integumentary/Breasts: Skin/Breast: Reports system reviewed and no additional complaints, except as docu and Reports as per HPI Neurologic: Reports system reviewed and no additional complaints, except as documented and Reports as per HPI Psychiatric: Psychiatric: Reports no additional psychiatric complaints and Reports as per HPI Endocrine: Endocrine: Reports no additional endocrine complaints, Reports as per HPI, Reports fatigue and
--- NOTE | 2021-04-26 12:32 | PM.DS ---
DS: Admitting Diagnosis Discharge Date 04/26/21 Admitting Diagnosis Shortness of breath DS: Discharge Diagnosis Discharge Diagnosis (1) Atrial fibrillation with RVR: Code(s): I48.91 - Unspecified atrial fibrillation Status: Acute (2) Acute pulmonary edema: Code(s): J81.0 - Acute pulmonary edema Status: Acute (3) Elevated LFTs: Code(s): R79.89 - Other specified abnormal findings of blood chemistry Status: Acute (4) Pre-diabetes: Code(s): R73.03 - Prediabetes Status: Acute (5) HTN (hypertension), benign: Code(s): I10 - Essential (primary) hypertension Status: Acute DS: Summary Hospital Course Reason for hospitalization: 60yo female with pre-DM and HTN here for shortness of breath and found to have AFib/RVR. Please see H&P for details Hospital Course: Patient presents with shortness of breath and chest tightness and found to have AFib with RVR. Also found to have markedly elevated blood pressure probably contributing to her symptoms. She was started on a Cardizem drip and oral metoprolol was added. Echo showing EF 55%, indeterminate diastolic function, LAE, mild valvular disease and mild pulmonary HTN. TSH was normal. COVID was negative. D-dimer was positive but CTA negative for PE and LE doppler negative for DVT. CTA did show pulmonary edema. Suspect patient has fluid overload with pedal edema and elevated liver enzymes from hepatic congestion related to her AFib with RVR. Hepatitis panel negative. She was started on Lasix IV with good clinical response. Repeat LFTs trending down. Patient has prediabetes on metformin. A1c 5.3. Monitored closely with [employer] and sliding scale protocol. [id number] score is 3. Cardiology following and appreciate their input. She was started on Eliquis. Risks/benefits of Eliquis discussed in detail. Patient underwent DULCE cardioversion on the morning of 04/25/21. No intracardiac thrombus but mild to moderate left atrial enlargement and mild mitral regurgitation. She converted to normal sinus rhythm after 200J. Patient was monitored overnight on telemetry. No recurrence of AFib. She was weaned off diltiazem and maintained on Lopressor orally. She overall did well and was discharged home on 04/26/2021. Status at Discharge Cognitive/behavioral status at discharge: Stable Time Spent with Patient Time attestation: Total time spent providing and/or coordinating discharge services: 34 minutes Time spent: Greater than 30 minutes Exam Narrative: AF 97.7 136/86 98 17 95% ra Gen - NARD Chest - CTA bilaterally, nml RR CV -regular rate and rhythm. S1-S2. Telemetry showing normal sinus rhythm. Abd - Soft, obese, NT Ext - No pedal edema Psych - Nml mood and affect Skin - Warm and dry DS: Data Data Completed and Pending Labs on day of discharge: Labs from last 24 hours 04/26/21 04/26/21 04/26/21 07:51 04:19 00:14 Sodium 138 Potassium 3.6 Chloride 103 Carbon Dioxide 32 H Anion Gap 3 L BUN 14 Creatinine 0.80 Estim Creat Clear Calc 95 Estimated GFR > 60 Glucose 109 POC Capillary Glucose 113 H 136 H Calcium 8.3 L Total Bilirubin 0.8 AST 37 H ALT 100 H Alkaline Phosphatase 70 Total Protein 6.0 L Albumin 3.6 04/25/21 04/25/21 04/25/21 18:08 15:53 12:30 Sodium Potassium Chloride Carbon Dioxide Anion Gap BUN Creatinine Estim Creat Clear Calc Estimated GFR Glucose POC Capillary Glucose 129 H 113 H 101 Calcium Total Bilirubin AST ALT Alkaline Phosphatase Total Protein Albumin Discharge Plan Discharge Attending physician on discharge: Trey Lozano Consulting providers: Lorne Gold Discharging Clinician: Trey Lozano Anticipated Discharge Date/Time: 04/26/21 12:42 Patient Disposition: Home, Self-Care Activity: as tolerated Diet: heart healthy D
== END 2021-04-26 13:38 | disposition home or self-care (01) | DRG 308 ==
LOC: ANHED 07:23 → ANHIMU 07:34
PROVIDERS: Emergency Medicine; Internal Medicine Cardiovascular Disease; Admitting Provider Internal Medicine; PCP Physician Assistant; Visit Provider Internal Medicine
PROC: 5A2204Z Restoration of Cardiac Rhythm, Single (ICD-10-PCS; principal; 2021-04-25 10:30)
PROC: 5A2204Z Restoration of Cardiac Rhythm, Single (ICD-10-PCS; CPT 93312; 2021-04-25 10:30)
DX: I48.91 Unspecified atrial fibrillation (principal); J81.0 Acute pulmonary edema; Z68.41 Body mass index [BMI] 40.0-44.9, adult; I10 Essential (primary) hypertension; I42.8 Other cardiomyopathies; Z20.822 Contact with and (suspected) exposure to COVID-19; R73.03 Prediabetes; Z83.3 Family history of diabetes mellitus; Z82.49 Family history of ischemic heart disease and other diseases of the circulatory system; E66.01 Morbid (severe) obesity due to excess calories; R79.89 Other specified abnormal findings of blood chemistry; E87.70 Fluid overload, unspecified; I34.0 Nonrheumatic mitral (valve) insufficiency; Z79.84 Long term (current) use of oral hypoglycemic drugs; Z79.899 Other long term (current) drug therapy
CPT/HCPCS: 36415; 71045; 71275; 80053; 80074; 82948; 83036; 83735; 84100; 84443; 84484; 85025; 85380; 85610; 85730; 92960; 93005; 93306; 93312; 93320; 93325; 93970; 96361; 96365; 96366; 96375; 96376; 99291; A9270; C9803; G0378; J1940; J2250; J3010; J7040; J7050; J7120; Q9967; U0003; U0005

== ENCOUNTER → 2021-05-17 02:11 | Outpatient (CLI) | payer OTHER, BC, SELFPAY ==
[2021-05-17 12:57] LABS: SARS-CoV-2 RNA PCR Negative
== END ==
PROVIDERS: PCP Physician Assistant; Visit Provider Internal Medicine Cardiovascular Disease
DX: Z01.812 Encounter for preprocedural laboratory examination (principal); Z20.822 Contact with and (suspected) exposure to COVID-19
CPT/HCPCS: C9803; U0003; U0005

== ENCOUNTER 2021-05-19 02:12 | Day surgery (SDC) | payer OTHER, BC, SELFPAY ==
[2021-05-18 14:27] VITALS: BMI 40.6
[2021-05-19] VITALS (17 sets, daily range): BP systolic 106–152; BP diastolic 81–123; PULSE 62–161; RESP 12–20; TEMP 36.2; O2SAT 94–100; BMI 41.6
--- NOTE | 2021-05-19 07:00 | ECG_ITS ---
Measurements Intervals [place] Rate: 65 P: 42 UT: 141 QRS: 59 QRSD: 90 T: 30 QT: 434 QTc: 453 Interpretive Statements SINUS RHYTHM NONSPECIFIC ST & T-WAVE ABNORMALITY BORDERLINE ECG COMPARED TO ECG 05/19/2021 07:22:25 SINUS RHYTHM NOW PRESENT Electronically Signed On 05-19-2021 17:15:04 CDT by Lorne Gold M.D.
[2021-05-19 07:39] LABS: Anion Gap 7 mmol/L (8-16); Blood Urea Nitrogen 25 mg/dL (7-17); Calcium 8.9 mg/dL (8.4-10.2); Carbon Dioxide 22 mmol/L (22-30); Chloride 111 mmol/L (98-107); Estimated CRCL calculation 86 ml/min; Estimated Glomerular Filt Rate > 60; Glucose 143 mg/dL (65-110); Magnesium 2.1 mg/dL (1.6-2.3); Sodium 140 mmol/L (137-145)
--- NOTE | 2021-05-19 08:30 | WPDMODSED ---
Moderate Sedation Note-Pt Data Patient Data Diagnosis: Atrial fibrillation with rapid ventricular response Present Complaint: Fatigue Procedure to be performed/Plan: Elective electrical cardioversion Allergies Allergy/AdvReac Type Severity Reaction Status Date / Time No Known Allergies Allergy Verified 05/19/21 07:16 Home Medications Medication Instructions Recorded Confirmed Type metformin 1,000 mg PO 1700 04/24/21 05/18/21 History apixaban [Eliquis] 5 mg PO Q12HR #60 tablet 04/26/21 05/18/21 Rx furosemide 20 mg PO DAILY #30 tablet 04/26/21 05/18/21 Rx metoprolol tartrate 75 mg PO Q12H #60 tablet 04/26/21 05/18/21 Rx pantoprazole 40 mg PO DAILY 05/18/21 05/18/21 History Current Medications: Active Medications Sodium Chloride (Normal Saline Iv) 1,000 mls @ 30 mls/hr IV CONT .Q24H [facility] Sedation/Anesthesia: No previous sedation/anesthesia problems (including family history). [facility] Past Medical History Medical History HTN (hypertension), benign Pre-diabetes Surgical History Surgical History Hx of section with C/S x1. Hx of cholecystectomy Hx of nasal polypectomy Hx of tonsillectomy Family History Family History Mother Atrial arrhythmia Father Atrial arrhythmia Lymphoma Grandparent Diabetes mellitus Father No problems noted. Social History Social History Social History: Lifelong nonsmoker. Rarely drinks alcohol. No drug use. Lives at home with her . Full code. She nominates her to be the individual who would make medical decisions for her if she is unable. Smoking status: Never smoker Alcohol intake: current Alcohol use details: 2-3/month Substance use: never Substance use type: does not use Living arrangements: with family Spiritual care concerns: No Mod Sed Physical Exam Physical Exam Pre Procedural Exam: Normal: Appearance, Eyes, Ears, Nose, Neck (Neck supple, normal range of motion), Throat (Posterior hypopharynx clear, nonerythematous), Airway (Normal anatomy, no obstruction), Lungs (Clear to auscultation bilaterally), Heart Size, Neuro Exam, Abdomen, Liver, Extremities and Skin and Variation: Heart Rate (Tachycardic) and Heart Rhythm (Irregularly irregular) Hours since solid foods: 12 Hours since liquid intake: 12 Mallampati Classification: class III Internal Medicine - PN: Obj Da Vital Signs Vital Signs: Vital Signs - 24 hr 05/19/21 07:17 05/19/21 08:30 05/19/21 08:37 Temperature 36.2 C L Pulse Rate 161 H 132 H 129 H Respiratory Rate 12 19 19 Blood Pressure 140/90 145/102 H 136/86 Pulse Oximetry 98 99 100 05/19/21 08:40 05/19/21 08:42 05/19/21 08:44 Temperature Pulse Rate 147 H 159 H 147 H Respiratory Rate 19 19 19 Blood Pressure 152/123 H 108/96 H 122/100 H Pulse Oximetry 100 100 100 05/19/21 08:46 05/19/21 08:48 05/19/21 08:54 Temperature Pulse Rate 66 66 67 Respiratory Rate 19 19 19 Blood Pressure 123/91 H 139/111 H 123/89 Pulse Oximetry 100 100 100 05/19/21 08:55 05/19/21 09:00 05/19/21 09:05 Temperature Pulse Rate 66 66 65 Respiratory Rate 20 17 Blood Pressure 122/84 106/81 139/111 H Pulse Oximetry 100 100 Meds/Results Medications: Active Medications Generic Name Dose Route Start Last Admin Trade Name Freq PRN Reason Stop Dose Admin Sodium Chloride 1,000 mls @ 30 mls/hr 05/19/21 07:00 Normal Saline Iv IV CONT .Q24H ELO[facility] Labs CBC & Chem 7: 05/19/21 07:15 Labs: Laboratory Results - last 24 hr 05/19/21 07:15 Sodium 140 Potassium 4.0 Chloride 111 H Carbon Dioxide 22 Anion Gap 7 L BUN 25 H D Creatinine 0.90 Estim Creat Clear Calc 86 Estimated GFR > 60 Glucose 143 H Calcium 8.9 Magnesium 2.1
--- NOTE | 2021-05-19 09:00 | ECG_ITS ---
Measurements Intervals [place] Rate: 152 P: [place]: 0 QRS: 65 QRSD: 84 T: -45 QT: 268 QTc: 426 Interpretive Statements ATRIAL FIBRILLATION WITH RAPID VENTRICULAR RESPONSE NONSPECIFIC ST & T-WAVE ABNORMALITY ABNORMAL ECG COMPARED TO ECG 04/25/2021 11:24:18 ATRIAL FIBRILLATION NOW PRESENT Electronically Signed On 05-19-2021 17:12:58 CDT by Lorne Gold M.D.
[2021-05-19] MEDS: AMIODARONE 150 MG/D5W 100 ML 150 MG/100 ML BAG 600 MG IV CONT (09:05)
--- NOTE | 2021-05-19 09:45 | WPDHPUPDATE1 ---
History and Physical Update Update Date/Time: 05/19/21 08:30 History and Physical has been reviewed, including an updated exam of the patient. There are NO changes in the patient's condition. Risks, benefits, and alternatives have been discussed and questions answered. Patient agrees to proceed with procedure.
--- NOTE | 2021-05-19 09:47 | WPDCARDVER ---
Cardioversion Cardioversion Date of procedure: 05/19/21 Procedure: Elective electrical cardioversion Pre-op diagnosis: Atrial fibrillation with rapid ventricular response Post-op diagnosis: Same Indications: Atrial fibrillation with rapid ventricular response Description of procedure: Brief history present illness: Patient is a pleasant 60-year-old female with recent diagnosis with atrial fibrillation with rapid ventricular response, hypertension, obesity, borderline diabetes who underwent DULCE guided cardioversion on 04/25/2021 discharged home on metoprolol 75 mg twice daily. She initially did quite well several weeks but was concerned about some shortness of breath and or wheezing intermittently and side effects related metoprolol. Unfortunately, she has then noted she was back in atrial fibrillation with rapid ventricular response for which she was referred for elective electrical cardioversion to restore sinus rhythm. She had been compliant with anticoagulation without missing a single dose on Eliquis so repeat DULCE guidance was not indicated. Procedure in detail: After verbal and written informed consent was obtained the patient risks, benefits, and alternatives explained in detail the patient agreed to proceed with the plan of care as outlined above. Patient was evaluated at bedside in the [facility] procedure room. On examination, neck was supple with normal range of motion, no restrictions to opening of the oral cavity, jaw angle and posterior hypopharynx was clear. Lungs were clear to auscultation. Patient was placed in appropriate 30 to 45 degree angle in a supine position. Patient was monitored throughout the study with telemetry, oxygen saturation, end-tidal CO2 monitoring, blood pressure, heart rate, and respirations. Anterior and posterior defibrillator pads placed in the appropriate positions. After confirmation of adequate sedation electrical cardioversion was carried out without complication. Patient tolerated the procedure well without difficulty. Sedation: Moderate Sedation/Anesthesia administration: Patient denied previous intolerance or complications with anesthesia/sedation. Please see sedation note for documentation of the pre-procedure physical examination. A total of 3mg intravenous Versed and a total of 75mcg intravenous Fentanyl in multiple divided doses was utilized for moderate sedation. Sedation start time was 0836 and end time was 0856 for a total of 20 minutes [id number] intra-procedure time. Sedation was administered by a qualified observer Trinh Florian RN under my supervision with intra-procedure [id number] observation and management throughout the entirety of the procedure. There were no other issues or complications and patient tolerated the procedure well and sedation protocol well and I was present for the entirety. Findings: Elective electrical cardioversion: After confirmation of adequate sedation and persistence of atrial fibrillation, 200 joules synched biphasic energy x1 was delivered with immediate church of sinus rhythm. However, patient then had intermittent recurrence of atrial fibrillation with rapid ventricular response eventually with sustained AFib with RVR heart rates in the 170s. Adequate sedation was once again confirmed and a second cardioversion was performed at 200 joules with immediate church of sinus rhythm. Once again, she had recurrence of atrial fibrillation with RVR briefly followed by an atrial tachycardia been back to sinus rhythm. She had very brief recurrence of AFib RVR once again lasting no more than a few seconds then sinus rhythm predominated. Given the instability and very rapid ventricular response in atrial fibrillation additional suppression with amiodarone was deemed the best option to minimize risk for hospitalization and maintenance of sinus rhythm and quality of life. Amiodarone 150 mg IV bolus was administered which was successful in [facility]
[2021-05-19] MEDS: AMIODARONE HCL 200 MG TABLET 400 MG PO (09:48)
--- NOTE | 2021-05-19 11:00 | SUR.PHASEII ---
1100. [facility] called and informed this rn that there was no length of time for 400mg twice daily amiodarone. This rn called & spoke with Dr Townsend. Amiodarone 400mg twice daily x1 week. Relayed to [facility] and noted on discharge instructions and informed of changes and showed where written on discharge instructions.
--- NOTE | 2021-05-19 11:51 | SUR.PHASEII ---
Discharge instructions read and given copies to patient and family. Pt and family states understanding. Jessica from Dr Thomas office called, informed of upcoming stress test on 05/29/21 with npo and what medications to hold and no caffeine 12 hours prior to test. His note stapled to discharge instructions.
== END 2021-05-19 11:09 | disposition home or self-care (01) ==
PROVIDERS: PCP Physician Assistant; Visit Provider Internal Medicine Cardiovascular Disease
PROC: 5A2204Z Restoration of Cardiac Rhythm, Single (ICD-10-PCS; principal; 2021-05-19 08:30)
DX: I48.91 Unspecified atrial fibrillation (principal); I10 Essential (primary) hypertension; R73.03 Prediabetes; Z79.01 Long term (current) use of anticoagulants; Z79.84 Long term (current) use of oral hypoglycemic drugs; E66.01 Morbid (severe) obesity due to excess calories; Z68.41 Body mass index [BMI] 40.0-44.9, adult
CPT/HCPCS: 36415; 80048; 83735; 92960; A9270; J0282; J2250; J3010; J7040

== ENCOUNTER 2021-05-23 00:19 | Inpatient (IN) | payer OTHER, BC, SELFPAY ==
[2021-05-23] VITALS (32 sets, daily range): BP systolic 114–160; BP diastolic 62–100; PULSE 85–141; RESP 16–22; TEMP 36.6–37.1; O2SAT 96–100; BMI 38.7
--- NOTE | ~2021-05-23 | XR_ITS ---
EXAMINATION: XR chest 1V portable DATE: 05/23/2021 01:43 INDICATION: Palpitations. TECHNIQUE: A single frontal view of the chest was obtained. COMPARISON: Chest single view 04/24/2021, chest CT 04/24/2021 FINDINGS: The chest demonstrates clear lungs without pneumonia, pleural effusion, or pneumothorax. Th e heart size is normal. IMPRESSION: 1. No acute cardiopulmonary disease. Reviewed, dictated and finalized at location A.
--- NOTE | 2021-05-23 00:24 | ECG_ITS ---
Measurements Intervals [place] Rate: 125 P: ME: 0 QRS: 41 QRSD: 92 T: -45 QT: 295 QTc: 426 Interpretive Statements ATRIAL FIBRILLATION WITH RAPID VENTRICULAR RESPONSE LOW QRS VOLTAGE IN PRECORDIAL LEADS NONSPECIFIC ST & T-WAVE ABNORMALITY COMPARED TO ECG 05/19/2021 09:03:16 ATRIAL FIBRILLATION NOW PRESENT Electronically Signed On 05-23-2021 8:48:24 CDT by Prashant Vera M.D.
[2021-05-23] MEDS: dilTIAZem HCl INJ 25 MG/5 ML VIAL 10 MG IV PUSH ×2 (00:57→02:44)
[2021-05-23 01:03] LABS: Basophils Absolute Auto 0.1 K/mm3 (0.0-0.1); Basophils Percent Auto 0.9 % (0.2-1.2); Eosinophils Absolute Auto 0.3 K/mm3 (0-0.3); Eosinophils Percent Auto 2.7 % (0-4.4); Hematocrit 42.2 % (37.0-47.0); Hemoglobin 13.4 g/dL (12.0-15.0); Immature Granulocyte Absolute 0.05 K/mm3 (0.00-0.031); Immature Granulocyte Percent A 0.4 % (0-0.5); Lymphocytes Absolute Auto 2.52 K/mm3 (0.9-3.2); Lymphocytes Percent Auto 21.7 % (18.3-44.2); Mean Corpuscular HGB Conc 31.8 g/dl (32-36); Mean Corpuscular Hemoglobin 29.7 pg (26-34); Mean Corpuscular Volume 93.6 fl (80-100); Mean Platelet Volume 12.2 fl (7.4-10.4); Monocytes Absolute Auto 1.1 K/mm3 (0.1-0.6); Monocytes Percent Auto 9.4 % (2.6-8.5); Neutrophils Absolute Auto 7.5 K/mm3 (1.3-6.7); Neutrophils Percent Auto 64.9 % (45.5-73.1); Platelet Count Result 242 k/mm3 (150-375); Red Blood Count 4.51 M/mm3 (4.2-5.4); Red Cell Distribution Width 13.6 % (11.5-14.5); White Blood Count 11.6 K/mm3 (4.5-10.0)
[2021-05-23 01:15] LABS: INR 1.1; Prothrombin Time 13.3 Seconds (11.1-14.7)
[2021-05-23 01:16] LABS: Partial Thromboplastin Time 32.2 SECONDS (22.3-36.8)
[2021-05-23 01:29] LABS: Alanine Aminotransferase 123 U/L (4-35); Albumin Level 3.5 g/dL (3.5-5.1); Alkaline Phosphatase 53 U/L (38-126); Anion Gap 4 mmol/L (8-16); Aspartate Amino Transferase 54 U/L (14-36); Bilirubin,Total 0.7 mg/dL (0.2-1.3); Blood Urea Nitrogen 12 mg/dL (7-17); Calcium 8.7 mg/dL (8.4-10.2); Carbon Dioxide 27 mmol/L (22-30); Chloride 107 mmol/L (98-107); Estimated Glomerular Filt Rate > 60; Glucose 126 mg/dL (65-110); Potassium 3.5 mmol/L (3.4-5.0); Sodium 138 mmol/L (137-145)
--- NOTE | 2021-05-23 01:44 | ED.ARRPALP ---
HPI - Arrhythmia/Palpitations General Chief Complaint: Arrhythmia/Palpitations Stated Complaint: elevated heart rate Time Seen by Provider: 05/23/21 00:36 Source: patient History of Present Illness HPI narrative: Patient presents with palpitations. She reports she felt a fast heart rate around 10 PM today she came directly to the ER for evaluation. Reports she was recently diagnosed with A. fib in April has had 2 cardioversions since that time her most recent was a couple days ago. She is noted to have difficult to control A. fib she is previously on beta-blockers recently switched to diltiazem and amiodarone. Patient denies any pain, cough, congestion, shortness of breath. Denies any fevers or chills. Her applied behavior specialist is Dr. Townsend Related Data Home Medications Medication Instructions Recorded Confirmed metformin 1,000 mg PO 1700 04/24/21 05/18/21 pantoprazole 40 mg PO DAILY 05/18/21 05/18/21 Allergies Allergy/AdvReac Type Severity Reaction Status Date / Time No Known Allergies Allergy Verified 05/19/21 07:16 Review of Systems Review of Systems: CONSTITUTIONAL: Denies fever, chills, or sweats. EYES: Denies visual changes, redness, or discharge. ENT: Denies rhinorrhea, congestion, sore throat, or otalgia. CARDIOVASCULAR: Denies chest pain, or edema. RESPIRATORY: Denies cough or dyspnea. GASTROINTESTINAL: Denies abdominal pain, nausea, vomiting, or diarrhea. GENITOURINARY: Denies dysuria or hematuria. SKIN: Denies rash or itching. MUSCULOSKELETAL: Denies back pain, joint pain, or myalgia. NEUROLOGIC: Denies headache, numbness, dizziness, or weakness. PSYCHIATRIC: Denies anxiety or depression. [facility] Past Medical History Medical History HTN (hypertension), benign Pre-diabetes Surgical History Surgical History Hx of section with C/S x1. Hx of cholecystectomy Hx of nasal polypectomy Hx of tonsillectomy Family History Family History Mother Atrial arrhythmia Father Atrial arrhythmia Lymphoma Grandparent Diabetes mellitus Father No problems noted. Social History Social History Social History: Lifelong nonsmoker. Rarely drinks alcohol. No drug use. Lives at home with her . Full code. She nominates her to be the individual who would make medical decisions for her if she is unable. Smoking status: Never smoker Alcohol intake: current Alcohol use details: 2-3/month Substance use: never Substance use type: does not use Spiritual care concerns: No Exam Narrative: GENERAL: Well-appearing, well-nourished, and in no acute distress. HEAD: Normocephalic, atraumatic. EYES: PERRLA and EOMI. ENT: Nares clear, no rhinorrhea or epistaxis. Mucous membranes moist. NECK: Supple. No masses. No JVD CHEST: Clear to auscultation. No respiratory distress. No wheezes rales or rhonchi HEART: Regular tachycardia. No murmur heard. Normal peripheral pulses. ABDOMEN: Soft, nontender, nondistended, normal active bowel sounds. EXTREMITIES: Normal range of motion. No edema. SKIN: Warm, dry, no rash. NEURO: No focal deficits. Alert and oriented x3. PSYCH: Normal mood and affect. Course Reevaluation(s) Reevaluation #1: Patient without significant improvement after 10 mg of diltiazem IV. Discussed with Dr. Lopez, patient on multiple prior cardioversions and difficult to control A. fib recommended admission with diltiazem drip and evaluation by the cardiology team Date: 05/23/21 Time: 02:28 Reevaluation #2: Patient feels her symptoms are improving after the diltiazem drip heart rates are predominantly in the 110s occasionally 120s and 100s. Will admit to hospitalist team for further management Date: 05/23/21 Time: 03:08 Vital Signs Vital signs:
[2021-05-23 01:45] LABS: Digoxin < 0.4 ng/mL (0.8-2.0)
[2021-05-23] MEDS: dilTIAZem 100 MG/100 ML 100 MG/100 ML BAG IV CONT ×2 (02:50→09:05)
--- NOTE | 2021-05-23 05:00 | ADMGEN ---
This patient, Allie Doe, was admitted to IMU Room 200-01. Patient/family oriented to hospital policies and general routines including ID bracelet, bed and alarms, visiting hours, pain management, procedures, bathroom and other care routines, personal items, smoking policy, room service/diet, and visiting hours. Information on how to activate the Rapid Response Team has been discussed. Patient/Family are encouraged to report perceived risks to care and to ask questions if they do not understand what they are told or what they should do.
[2021-05-23] MEDS: SODIUM CHLORIDE 0.9% IV 1,000 ML 125 ML IV CONT (05:37)
--- NOTE | 2021-05-23 08:31 | PM.IMHP ---
H&P: HPI History of Present Illness Date/Time: 05/23/21 0810 This pleasant, 52-year-old female patient with unremarkable medical history with exception of atrial fibrillation, was examined at the bedside as needed interval assessment after being admitted to the hospital with complaints of atrial fibrillation, status post 2 cardioversions with regression back to atrial fibrillation. She endorses that she presented to the emergency room around 10:00 p.m. last night after she began feeling palpitations. Patient states she was recently diagnosed with atrial fibrillation in April of this year and since being diagnosed has undergone 2 cardioversions with the most recent 1 being 4 days ago now on May 19, 2021. Patient was originally treated with beta-abbey for rate control however she was ultimately switched to amiodarone and diltiazem by her horse wrangler, Dr. Gold. Upon arrival to the emergency room she was found to be and atrial fibrillation with rapid ventricular response with a rate in the low 140s sustained. In addition she was hypertensive. The ER physician administered 10 mg of diltiazem and the patient's heart rate remained elevated and her rhythm unchanged. Although she stated she felt somewhat better rapid ventricular response was still present. The ER physician who reached out to Cardiology and spoke with Dr. Lopez who recommended starting the patient on a Cardizem drip and placing a consult for them vomiting overnight patient has been monitored on telemetry her heart rate has ranged the upper 90s to as high as 120. Her rhythm remains atrial fibrillation at this time. Cardiology has been consulted and we appreciate further recommendations from the team. Patient currently denies any acute chest pain, nausea, vomiting, diarrhea, diaphoresis, urinary complaints. She does endorse dyspnea on exertion when she is up to walking to the restroom. Review of labs this morning show a white blood cell count 11.6, unremarkable H&H and platelets. Electrolytes with potassium of 3.5, normal renal function, sodium of 138 and magnesium was not ordered for this morning, however I will order it now and the goal will be to keep potassium above 4 and Mag above 2. As her potassium is 3.5 we will give her dose of 40 p.o.. Of note TSH was just recently checked April 24, 2021 and was 3.120. Will defer rechecking at this time as it has been less than a month. Chief Complaint: Weakness and palpitations Review of Systems Review of Systems: A 12 point review of systems was performed and is otherwise unremarkable with exception what is noted in HPI. All systems reviewed & are unremarkable except as noted in HPI and below PMFSH Past Medical History Medical History HTN (hypertension), benign Pre-diabetes Surgical History Surgical History Hx of section with C/S x1. Hx of cholecystectomy Hx of nasal polypectomy Hx of tonsillectomy Family History Family History Mother Atrial arrhythmia Father Atrial arrhythmia Lymphoma Grandparent Diabetes mellitus Father No problems noted. Social History Social History Social History: Lifelong nonsmoker. Rarely drinks alcohol. No drug use. Lives at home with her . Full code. She nominates her to be the individual who would make medical decisions for her if she is unable. Smoking status: Never smoker Alcohol intake: never Alcohol use details: 2-3/month Substance use: never Substance use type: does not use Spiritual care concerns: No Meds Home Medications and Allergies Home Medications Medication Instructions Recorded Confirmed Type metformin 1,000 mg PO 1700 04/24/21 05/23/21 History Eliquis 5 mg PO Q12HR #60
[2021-05-23] MEDS: POTASSIUM CHLORIDE 20 MEQ TABLET 40 MEQ PO (09:02)
[2021-05-23] MEDS: ACETAMINOPHEN 325 MG TABLET 650 MG PO (09:03)
--- NOTE | 2021-05-23 11:57 | PM.CNCAR ---
Assessment and Plan Assessment and plan (1) Paroxysmal atrial fibrillation: Code(s): I48.0 - Paroxysmal atrial fibrillation Status: Acute Assessment and Plan: Patient with recent onset of AFib RVR in April 2021 status post cardioversion, then with a recurrence requiring another cardioversion on 05/19/2021. Now has had a 2nd recurrence. She has been on amiodarone but only for a few days so unable to call this an amiodarone failure. Difficult to control heart rate. Intolerant of metoprolol because of asthma. Has been referred to Dr. Givens (welder operator, [facility]) for consideration of ablation. I spoke to Dr. Givens, reviewed the situation. He recommended aggressive amiodarone loading with both p.o. and IV amiodarone and another cardioversion this week. He will move up her appointment and discuss ablation with her electively as an outpatient. If this plan is not successful then we can transfer her as an inpatient. Also I will order an apnea link to c screen for sleep apnea. If she becomes bradycardic, will stop the diltiazem 1st. (2) Chronic anticoagulation: Code(s): Z79.01 - FDC (current) use of anticoagulants Status: Acute Assessment and Plan: Has been taking Eliquis and not missed any doses until this morning; will give her a dose now to make up for it. No bleeding problems. (3) HTN (hypertension), benign: Code(s): I10 - Essential (primary) hypertension Status: Acute Assessment and Plan: Blood pressure is controlled. History of Present Illness History of Present Illness Consult date/time: 05/23/21 11:57 Reason For Visit: afib with rvr Narrative: Allie Doe S 60-year-old white female whom we were asked to see at the request of the ER physician Dr. Karlie Greenwood and the hospitalist for advice and opinion regarding her recurrent AFib RVR, in consultation. She also has a history of hypertension and morbid obesity. The patient was initially hospitalized in early April with new onset AFib RVR and CHF. Her echo showed EF 55%, LVH, mild MR, and RVSP of 35 mmHg. She underwent a DULCE guided successful cardioversion on 04/25/2021 and was discharged on furosemide, metoprolol and Eliquis. When she was seen in our office on 05/16/2021 not feeling well she was found to be back in AFib RVR with a heart rate of 160 while taking metoprolol tartrate 75 mg b.i.d.. She was readmitted 05/19/2021 for an elective outpatient successful cardioversion and changed to diltiazem 30 mg t.i.d. (metoprolol made her feel like she had asthma) and amiodarone 400 mg b.i.d. was added. She was referred to Dr. Givens, welder operator, for consideration of AFib ablation and has an appointment with him on 06/23/2021. The patient was readmitted 05/23/2021 in the community service coordinator after she felt fast heartbeats again. She was in AFib RVR heart rate in the 140s. She was put on a Cardizem drip, currently 15 milligrams/hour, with a heart rate now about 115 beats per minute. No particular shortness of breath. Some recent onset of swelling. No chest pain.. No known sleep apnea although she does snore. No excessive daytime sleepiness. Minimal alcohol intake. No thyroid disease. Review of Systems Constitutional: Constitutional: Reports no additional constitutional complaints Comments: Hungry, has been left NPO Eyes: Eyes: Reports no additional eye complaints ENT: Denies epistaxis Cardiovascular: Cardiovascular: Denies chest pain, Reports pedal edema, Denies lightheadedness and Reports palpitations Respiratory: Respiratory: Reports no additional respiratory complaints Gastrointestinal: Gastrointestinal: Denies no additional gastrointestinal complaints (Has had some belching, now takes a PPI) and Denies abdominal pain Genitourinary: Genitourinary: Denies hematuria Musculoskeletal: Musculoskeletal: Reports no additional musculoskeletal complaints Integumentary/Breast
[2021-05-23 12:26] LABS: Glucose Point of Care 113 mg/dl (65-105)
--- NOTE | 2021-05-23 12:56 | PHAR ---
CHECKED WITH DR. BOND TO VERIFY THAT BOTH ORAL AND IV AMIODARONE ARE NEEDED AND SHE SAID THAT YES THEY WERE BOTH RECOMMENDED BY THE SURGICAL PROCESSOR
[2021-05-23] MEDS: APIXABAN 5 MG TABLET PO ×2 (13:21→21:02)
[2021-05-23] MEDS: AMIODARONE HCL 200 MG TABLET 400 MG PO ×2 (13:21→21:02)
[2021-05-23] MEDS: AMIODARONE 150 MG/D5W 100 ML 150 MG/100 ML BAG 600 MG IV CONT (13:23)
[2021-05-23] MEDS: AMIODARONE 360 MG/D5W 200 ML 360 MG/200 ML BAG 33.33 MG IV CONT (13:24)
[2021-05-23] MEDS: PANTOPRAZOLE 40 MG TABLET PO (14:46)
[2021-05-23 16:23] LABS: Glucose Point of Care 137 mg/dl (65-105)
[2021-05-23] MEDS: dilTIAZem 100 MG/100 ML 100 MG/100 ML BAG 15 MG IV CONT ×2 (16:42→23:21)
[2021-05-23] MEDS: metFORMIN HCL XR 500 MG TAB.SR.24H 1000 MG PO (16:54)
[2021-05-23] MEDS: AMIODARONE 360 MG/D5W 200 ML 360 MG/200 ML BAG 16.67 MG IV CONT (19:43)
[2021-05-23 23:27] LABS: Glucose Point of Care 112 mg/dl (65-105)
[2021-05-24] VITALS (18 sets, daily range): BP systolic 118–143; BP diastolic 72–89; PULSE 68–113; RESP 16–20; TEMP 36.3–36.8; O2SAT 97–98
[2021-05-24] MEDS: dilTIAZem 100 MG/100 ML 100 MG/100 ML BAG 15 MG IV CONT ×3 (05:52→18:42)
[2021-05-24] MEDS: AMIODARONE 360 MG/D5W 200 ML 360 MG/200 ML BAG 16.67 MG IV CONT ×2 (06:35→17:42)
[2021-05-24 07:55] LABS: Glucose Point of Care 124 mg/dl (65-105)
[2021-05-24 08:03] LABS: Basophils Absolute Auto 0.1 K/mm3 (0.0-0.1); Basophils Percent Auto 1.3 % (0.2-1.2); Eosinophils Absolute Auto 0.3 K/mm3 (0-0.3); Eosinophils Percent Auto 3.2 % (0-4.4); Hemoglobin 13.6 g/dL (12.0-15.0); Immature Granulocyte Absolute 0.02 K/mm3 (0.00-0.031); Immature Granulocyte Percent A 0.3 % (0-0.5); Lymphocytes Percent Auto 26.5 % (18.3-44.2); Mean Corpuscular HGB Conc 31.6 g/dl (32-36); Mean Corpuscular Hemoglobin 29.6 pg (26-34); Mean Corpuscular Volume 93.5 fl (80-100); Mean Platelet Volume 11.2 fl (7.4-10.4); Monocytes Absolute Auto 0.6 K/mm3 (0.1-0.6); Monocytes Percent Auto 7.8 % (2.6-8.5); Neutrophils Absolute Auto 4.8 K/mm3 (1.3-6.7); Neutrophils Percent Auto 60.9 % (45.5-73.1); Platelet Count Result 231 k/mm3 (150-375); Red Cell Distribution Width 13.8 % (11.5-14.5); White Blood Count 7.9 K/mm3 (4.5-10.0)
[2021-05-24 08:15] LABS: Alanine Aminotransferase 125 U/L (4-35); Albumin Level 3.9 g/dL (3.5-5.1); Alkaline Phosphatase 59 U/L (38-126); Anion Gap 5 mmol/L (8-16); Aspartate Amino Transferase 56 U/L (14-36); Bilirubin,Total 0.8 mg/dL (0.2-1.3); Blood Urea Nitrogen 9 mg/dL (7-17); Carbon Dioxide 27 mmol/L (22-30); Chloride 107 mmol/L (98-107); Estimated CRCL calculation 92 ml/min; Estimated Glomerular Filt Rate > 60; Glucose 133 mg/dL (65-110); Magnesium 2.3 mg/dL (1.6-2.3); Sodium 139 mmol/L (137-145)
[2021-05-24] MEDS: FUROSEMIDE 20 MG TABLET PO (09:20)
[2021-05-24] MEDS: APIXABAN 5 MG TABLET PO ×2 (09:20→20:47)
[2021-05-24] MEDS: PANTOPRAZOLE 40 MG TABLET PO (09:20)
[2021-05-24] MEDS: AMIODARONE HCL 200 MG TABLET 400 MG PO ×2 (09:20→20:48)
[2021-05-24 12:40] LABS: Glucose Point of Care 109 mg/dl (65-105)
--- NOTE | 2021-05-24 13:11 | PM.IMPN ---
Progress Note: A&P Assessment and Plan (1) Atrial fibrillation with RVR: Code(s): I48.91 - Unspecified atrial fibrillation Status: Acute Assessment and Plan: -acute on chronic. -continue Cardizem drip. -cardiology consult for further evaluation and definitive management. -echo performed April 24, 2021 shows normal left ventricular systolic function with an EF of 55%. No aortic valve stenosis was appreciated. -patient had DULCE with cardioversion April 25, 2021. At that time she had yazidi of sinus rhythm after cardioversion. She was discharged home on metoprolol 75 mg b.i.d. at that time. After approximately several weeks she was continually having shortness of breath and side effects related to metoprolol, when it was found that she was actually back in atrial fibrillation with RVR and presented again for a 2nd cardioversion on May 19, 2021 that restored sinus rhythm. At that time metoprolol was discontinued due to concern for bronchospasm side effects and diltiazem 30 mg t.i.d. was ordered. Amiodarone was also continued. It was noted at that time that if she develops recurrence of AFib with RVR or tolerated the medication regimen poorly that she would likely require readmission for management, which brings us to where she is today. -Xarelto at home for anticoagulation. Currently holding for any potential procedures to be performed by Cardiology. -SCDs for DVT prophylaxis. -continue telemetry. - [id number] score of 3 - 4/08/09 - Amiodarone loading and drip was added last evening. With high dose Amiodarone, and with Cardizem the pt. is now rate controlled, but remains in the rhythm of A-fib/flutter. (2) Elevated LFTs: Code(s): R79.89 - Other specified abnormal findings of blood chemistry Status: Chronic Assessment and Plan: -appears to be chronic. -transaminases were elevated on previous admission as well. At that time it was suspected that it was related to hepatic congestion. Total bilirubin is normal. -will continue to monitor. -previous hospitalization her hepatitis panel was negative. -metformin was held on previous admissions secondary to her transaminitis. We will continue this trend during this hospitalization. As she has a history of prediabetes if problematic we will initiate sliding scale insulin protocol with hypoglycemic protocol. However her fasting glucose this morning is 126. -no imaging was performed on previous admission with regards to transaminitis. If uptrending, or if patient becomes symptomatic, then will consider ultrasound of right upper quadrant. - Stable (3) Obesity (BMI 35.0-39.9 without comorbidity): Code(s): E66.9 - Obesity, unspecified Status: Acute Assessment and Plan: -patient's overall weight has decreased slightly from previous admission. We continue to recommend lifestyle changes. Time Spent With Patient Time with patient: 15 - 25 minutes Subjective Date/time seen: 05/24/21 0930 This pt. with persistent a-fib/flutter was evaluated at the bedside today in interval exam after Cardiology has made their recommendations yesterday and she is currently on Diltiazem and Amiodarone drips with adequate rate control. Dr. Vera has been consulted and the patient's own bobbin doffer was consulted from [facility] and recommended continued high dose Amiodarone and Diltiazem and a Cardioversion attempt this week. It is expected that the pt. will attempt to be Cardioverted tomorrow. If it does not work, then the pt. will be transferred to [facility]. She has a follow up scheduled for June [address] Givens for discussion of proceeding with Ablation. She currently denies any CP, Dyspnea, N/V/D/urinary complaints. Review of Systems Review of Systems: All systems reviewed & are unremarkable except as noted in HPI and below Exam Const: General: comfortable and no acute distress HENMT: Mouth: Yes moist mucous membranes Eyes: Sclera: scleral abnormality
--- NOTE | 2021-05-24 14:33 | PM.PNCARD ---
Progress Note: A&P Assessment and Plan (1) Paroxysmal atrial fibrillation: Code(s): I48.0 - Paroxysmal atrial fibrillation Status: Acute Assessment and Plan: Patient with recent onset of AFib RVR in April 2021 status post cardioversion, then with a recurrence requiring another cardioversion on 05/19/2021. Admitted 05/23/2021 with a 2nd recurrence of AFib RVR. She has been on amiodarone but only for a few days so unable to call this an amiodarone failure. Difficult to control heart rate. Intolerant of metoprolol because of asthma. Patient has been referred to Dr. Givens, baking factory worker. He recommended aggressive amiodarone loading with both p.o. and IV amiodarone and another cardioversion this week. He has moved her appointment to later this month to discuss ablation with her electively as an outpatient. If this plan is not successful then we can transfer her as an inpatient. Plan is for cardioversion tomorrow at 10:00 a.m., hopefully discharge tomorrow. Stop diltiazem tonight prior to cardioversion to avoid post cardioversion bradycardia. Has an appointment for an outpatient stress test to rule out ischemic disease. I recommend keeping this appointment; if she has no ischemic disease we would have more flexibility for future anti rhythmic drug therapy. (2) Chronic anticoagulation: Code(s): Z79.01 - custodial (current) use of anticoagulants Status: Acute Assessment and Plan: Has been taking Eliquis and not missed any doses. No bleeding problems. (3) HTN (hypertension), benign: Code(s): I10 - Essential (primary) hypertension Status: Acute Assessment and Plan: Blood pressure is controlled. (4) Sleep apnea: Code(s): G47.30 - Sleep apnea, unspecified Status: Acute Assessment and Plan: Apnea link was abnormal suggesting sleep apnea. Will schedule follow-up with a sleep medicine doctor as an outpatient. Subjective Date/time seen: 05/24/21 14:33 Interval history: Patient with recent onset of AFib RVR in April 2021 status post cardioversion, then with a recurrence requiring another cardioversion on 05/19/2021, then discharged on amiodarone. N was readmitted 05/23/2021 with a 2nd recurrence of AFib RVR. She has been on amiodarone but only for a few days so unable to call this an amiodarone failure. Difficult to control heart rate. Intolerant of metoprolol because of asthma. Has been referred to Dr. Givens (baking factory worker, [facility]) for consideration of ablation. I spoke to Dr. Givens, reviewed the situation. He recommended aggressive amiodarone loading with both p.o. and IV amiodarone and another cardioversion this week. He will move up her appointment and discuss ablation with her electively as an outpatient. If this plan is not successful then we can transfer her as an inpatient. Date of service 05/24/2021: Feeling better, less dyspneic, up and about in her room. Still on both look diltiazem drip and the amiodarone drip. Telemetry shows AFib rate 80-110. Apnea link: Abnormal. AHI 12.5, lowest O2 sat 73% Review of Systems Constitutional: Constitutional: Denies fatigue and Denies weakness Cardiovascular: Cardiovascular: Denies chest pain, Reports pedal edema and Denies palpitations Respiratory: Respiratory: Denies dyspnea and Denies dyspnea on exertion Gastrointestinal: Gastrointestinal: Denies abdominal pain Integumentary/Breasts: Skin/Breast: Reports system reviewed and no additional complaints, except as docu Neurologic: Reports system reviewed and no additional complaints, except as documented Psychiatric: Psychiatric: Reports no additional psychiatric complaints Exam Narrative: Up and about in room, at the bedside Const: General: comfortable and no acute distress HENMT: General nose exam: no epistaxis Neck: Neck: supple Resp: Effort & Inspection: normal respiratory effort Auscultat
[2021-05-24 17:24] LABS: Glucose Point of Care 105 mg/dl (65-105)
[2021-05-24] MEDS: metFORMIN HCL XR 500 MG TAB.SR.24H 1000 MG PO (17:37)
[2021-05-24 20:26] LABS: Glucose Point of Care 151 mg/dl (65-105)
[2021-05-25] VITALS (35 sets, daily range): BP systolic 107–145; BP diastolic 69–102; PULSE 57–120; RESP 12–20; TEMP 35.6–36.8; O2SAT 93–100
[2021-05-25] MEDS: dilTIAZem 100 MG/100 ML 100 MG/100 ML BAG 15 MG IV CONT ×2 (00:49→07:03)
[2021-05-25 05:02] LABS: Basophils Absolute Auto 0.1 K/mm3 (0.0-0.1); Eosinophils Absolute Auto 0.4 K/mm3 (0-0.3); Eosinophils Percent Auto 4.3 % (0-4.4); Hematocrit 40.1 % (37.0-47.0); Hemoglobin 12.8 g/dL (12.0-15.0); Immature Granulocyte Absolute 0.03 K/mm3 (0.00-0.031); Immature Granulocyte Percent A 0.3 % (0-0.5); Lymphocytes Absolute Auto 2.11 K/mm3 (0.9-3.2); Lymphocytes Percent Auto 22.8 % (18.3-44.2); Mean Corpuscular HGB Conc 31.9 g/dl (32-36); Mean Corpuscular Hemoglobin 29.2 pg (26-34); Mean Corpuscular Volume 91.3 fl (80-100); Mean Platelet Volume 11.5 fl (7.4-10.4); Monocytes Absolute Auto 0.8 K/mm3 (0.1-0.6); Monocytes Percent Auto 8.1 % (2.6-8.5); Neutrophils Absolute Auto 5.9 K/mm3 (1.3-6.7); Neutrophils Percent Auto 63.5 % (45.5-73.1); Platelet Count Result 204 k/mm3 (150-375); Red Blood Count 4.39 M/mm3 (4.2-5.4); Red Cell Distribution Width 13.4 % (11.5-14.5); White Blood Count 9.3 K/mm3 (4.5-10.0)
[2021-05-25] MEDS: AMIODARONE 360 MG/D5W 200 ML 360 MG/200 ML BAG 16.67 MG IV CONT ×3 (05:10→19:54)
[2021-05-25 05:18] LABS: Alanine Aminotransferase 94 U/L (4-35); Albumin Level 3.4 g/dL (3.5-5.1); Alkaline Phosphatase 49 U/L (38-126); Anion Gap 7 mmol/L (8-16); Aspartate Amino Transferase 43 U/L (14-36); Bilirubin,Total 0.4 mg/dL (0.2-1.3); Blood Urea Nitrogen 13 mg/dL (7-17); Calcium 8.2 mg/dL (8.4-10.2); Carbon Dioxide 26 mmol/L (22-30); Chloride 107 mmol/L (98-107); Estimated CRCL calculation 82 ml/min; Estimated Glomerular Filt Rate > 60; Glucose 101 mg/dL (65-110); Magnesium 2.2 mg/dL (1.6-2.3); Potassium 3.6 mmol/L (3.4-5.0); Sodium 140 mmol/L (137-145)
[2021-05-25] MEDS: PANTOPRAZOLE 40 MG TABLET PO (08:21)
[2021-05-25] MEDS: AMIODARONE HCL 200 MG TABLET 400 MG PO ×2 (08:21→20:01)
[2021-05-25] MEDS: APIXABAN 5 MG TABLET PO ×2 (08:21→20:01)
[2021-05-25] MEDS: FUROSEMIDE 20 MG TABLET PO (08:22)
--- NOTE | 2021-05-25 09:37 | WPDHPUPDATE1 ---
History and Physical Update Update Date/Time: 05/25/21 09:37 Patient with recurrent atrial fibrillation who has been on high-dose amiodarone p.o. in IV here for repeat cardioversion. History and Physical has been reviewed, including an updated exam of the patient. She now appears to be an in atrial flutter , HR 116. Otherwise there are NO changes in the patient's condition. Risks, benefits, and alternatives have been discussed and questions answered. Patient agrees to proceed with procedure.
--- NOTE | 2021-05-25 09:37 | WPDMODSED ---
Moderate Sedation Note-Pt Data Patient Data Diagnosis: recurrent atrial fibrillation Present Complaint: Patient presented with new onset AFib in April and had a cardioversion. Later this recurred and she had a 2nd cardioversion last week and was discharged on high dose amiodarone. She had recurrent atrial fibrillation and was admitted earlier this week. She was placed on IV diltiazem and IV amiodarone as well as continuing her p.o. amiodarone. She is in an atrail flutter this morning, HR 116. We will proceed with another cardioversion this morning hoping that now that she has been loaded with amiodarone she will maintain sinus rhythm. She has not missed any doses of Eliquis. She will follow-up with Dr. Givens, marketing support assistant, to consider options including AFib ablation. Procedure to be performed/Plan: Conscious sedation Elective electrical cardioversion Allergies Allergy/AdvReac Type Severity Reaction Status Date / Time No Known Allergies Allergy Verified 05/19/21 07:16 Home Medications Medication Instructions Recorded Confirmed Type metformin 1,000 mg PO 1700 04/24/21 05/23/21 History Eliquis 5 mg PO Q12HR #60 tablet 04/26/21 05/23/21 Rx furosemide 20 mg PO DAILY #30 tablet 04/26/21 05/23/21 Rx pantoprazole 40 mg PO DAILY 05/18/21 05/23/21 History diltiazem HCl 30 mg PO TID #90 tablet 05/19/21 05/23/21 Rx acetaminophen 1,000 mg PO Q6H PRN 05/23/21 05/23/21 History amiodarone 400 mg PO BID 05/23/21 05/23/21 History Current Medications: Active Medications Acetaminophen (Acetaminophen 500 Mg Tablet) 1,000 mg PO Q6H PRN PRN Reason: Pain Amiodarone HCl (Amiodarone Hcl 200 Mg Tablet) 400 mg PO Q12HR [facility] Stop: 06/22/21 20:59 Last Admin: 05/25/21 08:21 Dose: 400 mg Documented by: Apixaban (Apixaban 5 Mg Tablet) 5 mg PO Q12HR ELOINA Last Admin: 05/25/21 08:21 Dose: 5 mg Documented by: Furosemide (Furosemide 20 Mg Tablet) 20 mg PO DAILY [facility] Last Admin: 05/25/21 08:22 Dose: 20 mg Documented by: Diltiazem HCl (Cardizem 100 Mg/100 Ml) 100 mg in 100 mls @ 0 mls/hr IV CONT .Q0M ELOINA; Protocol Stop: 06/23/21 18:40 Last Titration: 05/25/21 08:33 Dose: 0 mg/hr, 0 mls/hr Documented by: Amiodarone HCl/Dextrose (Nexterone 360 Mg/D5w 200 Ml) 360 mg in 200 mls @ 16.667 mls/hr IV CONT .Q12H ELOINA Last Infusion: 05/25/21 08:00 Dose: 0.5 mg/min, 16.67 mls/hr Documented by: Sodium Chloride (Normal Saline Iv) 1,000 mls @ 30 mls/hr IV CONT .Q24H ELOINA Metformin HCl (Metformin Hcl Xr 500 Mg Tab.Sr.24h) 1,000 mg PO 1700 [facility] Last Admin: 05/24/21 17:37 Dose: 1,000 mg Documented by: Ondansetron HCl (Ondansetron Inj 4 Mg/2 Ml Vial) 4 mg IV PUSH Q4H PRN PRN Reason: Nausea Pantoprazole Sodium (Pantoprazole 40 Mg Tablet) 40 mg PO DAILY [facility] Last Admin: 05/25/21 08:21 Dose: 40 mg Documented by: Sedation/Anesthesia: No previous sedation/anesthesia problems (including family history). [facility] Past Medical History Medical History (Updated 05/24/21 @ 14:49 by Lesly Arnold MD) Chronic anticoagulation HTN (hypertension), benign Paroxysmal atrial fibrillation Pre-diabetes Surgical History Surgical History Hx of section with C/S x1. Hx of cholecystectomy Hx of nasal polypectomy Hx of tonsillectomy Family History Family History Mother Atrial arrhythmia Father Atrial arrhythmia Lymphoma Grandparent Diabetes mellitus Father No problems noted. Other Kvxnu-Ejunmwhic-Xiuwr (WPW) syndrome Social History Social History (Updated 05/23/21 @ 12:57 by Lesly Arnold MD) Social History: Lifelong nonsmoker. Rarely drinks alcohol. No drug use. Lives at home with her . 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 She nominates her to be the individual who would make medical decisions for her if she is unable. Smoking status: Never smoker Roo
--- NOTE | 2021-05-25 10:30 | ECG_ITS ---
Measurements Intervals [place] Rate: 119 P: NM: 0 QRS: 52 QRSD: 96 T: -81 QT: 262 QTc: 369 Interpretive Statements ATRIAL FLUTTER/TACHYCARDIA WITH RAPID VENTRICULAR RESPONSE ST DEVIATION AND MODERATE T-WAVE ABNORMALITY COMPARED TO ECG 05/23/2021 00:29:39 ATRIAL FLUTTER NOW PRESENT Electronically Signed On 05-25-2021 18:55:52 CDT by Lesly Arnold M.D.
--- NOTE | 2021-05-25 10:55 | SUR.PHASEII ---
AMIODARONE GTT RESUMED AT THIS TIME AT 16.7ML/HR VIA PUMP PER DR. BOND'S ORDER. WAS HELD JUST PRIOR TO CARDIOVERSION.
--- NOTE | 2021-05-25 11:00 | PM.OP ---
Procedure Note - Brief Procedure Note - Brief Date of procedure: 05/25/21 Pre-op diagnosis: afib with rvr Procedure performed: Conscious sedation Elective electrical cardioversion Description of procedure: Unsuccessful cardioversion attempt. Anesthesia: local (Conscious sedation) Surgeon: Lesly Arnold MD Complications: No immediate complications Condition: Stable Disposition: Floor
--- NOTE | 2021-05-25 11:01 | P.OP_ITS ---
Procedure Note - Detailed Date of Procedure 05/25/21 Pre-op Diagnosis afib with rvr Post-op Diagnosis Same Procedure Performed Conscious sedation Elective electrical cardioversion Surgeon Lesly Arnold MD Anesthesia Other (Conscious sedation) Indications Patient presented with new onset AFib in April and had a cardioversion. Later this recurred and she had a 2nd cardioversion last week and was discharged on high dose amiodarone. She had recurrent atrial fibrillation and was admitted earlier this week. She was placed on IV diltiazem and IV amiodarone as well as continuing her p.o. amiodarone. She is in an atrail flutter this morning, HR 116. We will proceed with another cardioversion this morning hoping that now that she has been loaded with amiodarone she will maintain sinus rhythm. She has not missed any doses of Eliquis. She will follow-up with Dr. Givens, associate team physician, to consider options including AFib ablation. Findings Unsuccessful cardioversion attempt Description of Procedure Conscious sedation: Assessment: The patient has no history of anesthesia problems. The patient's oropharynx is clear. The patient was deemed to be a good candidate for conscious sedation. The patient had continuous hemodynamic monitoring during the procedure. Start time: 1035 Completion time: 10 51 Total conscious sedation time: 16 minutes Medications: Versed 5 mg, fentanyl 100 mcg in divided doses Trained observer: Sarah Kingston RN Outcome: The patient tolerated the procedure well with no complications. Cardioversion: After informed consent and the above conscious sedation, the patient was reassessed, still in atrial flutter, and underwent elective electrical synchronized cardioversion the pads and anterior/posterior position with 100 joules of biphasic energy and converted to atrial fibrillation. She then underwent a 2nd cardioversion with 300 joules, maintained sinus rhythm for less than 10 seconds and went back into atrial fibrillation. The pads were repositioned and she underwent a 3rd cardioversion with 360 joules, maintaining atrial fibrillation. The pads were then changed to a right anterioro- lateral/left apical position and she underwent a 4th synchronized cardioversion, but remained in atrial fibrillation RVR. There were no complications. Plan: Will discuss transfer to [facility] for further care of the atrial fibrillation. Urine Output 1,200 Drains No Packing No Pathology None sent Complications No immediate complications Condition Stable Disposition Floor
--- NOTE | 2021-05-25 12:20 | SUR.PHASEII ---
Addendum entered by Urvashi Velazquez RN 05/25/21 16:02: AMIODARONE GTT ACTUALLY RESUMED AT 1055 AT 16.7ML/HR. ONLY CARDIZEM GTT RESUMED AT 10ML/HR AT 1215. KE. Original Note: AMIODARONE GTT HELD JUST BEFORE INITIAL CARDIOVERSION ATTEMPT. RESUMED AT THIS TIME AT PREVIOUS RATE OF 16.7ML/HR. CARDIZEM GTT ALSO RESUMED AT THIS TIME AT 10MG/HR OR 10ML/HR. BOTH RESUME ORDERS PER DR. BOND. ORDER RECEIVED FOR HYDROCORTISONE CREAM TID TO REDDENED SKIN ANTERIOR AND POSTERIOR CHEST POST CARDIOVERSION. DR. BOND TO BEDSIDE TO SPEAK TO PT. ABOUT POSSIBLE TRANSFER TO [facility]. VSS. MONITOR AFIB.
[2021-05-25 13:22] LABS: Glucose Point of Care 93 mg/dl (65-105)
--- NOTE | 2021-05-25 13:41 | PM.IMPN ---
Progress Note: A&P Assessment and Plan (1) Atrial fibrillation with RVR: Code(s): I48.91 - Unspecified atrial fibrillation Status: Acute Assessment and Plan: -acute on chronic. -continue Cardizem drip. -cardiology consult for further evaluation and definitive management. -echo performed April 24, 2021 shows normal left ventricular systolic function with an EF of 55%. No aortic valve stenosis was appreciated. -patient had DULCE with cardioversion April 25, 2021. At that time she had mu-ism of sinus rhythm after cardioversion. She was discharged home on metoprolol 75 mg b.i.d. at that time. After approximately several weeks she was continually having shortness of breath and side effects related to metoprolol, when it was found that she was actually back in atrial fibrillation with RVR and presented again for a 2nd cardioversion on May 19, 2021 that restored sinus rhythm. At that time metoprolol was discontinued due to concern for bronchospasm side effects and diltiazem 30 mg t.i.d. was ordered. Amiodarone was also continued. It was noted at that time that if she develops recurrence of AFib with RVR or tolerated the medication regimen poorly that she would likely require readmission for management, which brings us to where she is today. -Xarelto at home for anticoagulation. Currently holding for any potential procedures to be performed by Cardiology. -SCDs for DVT prophylaxis. -continue telemetry. - [id number] score of 3 - 05/24/21 - Amiodarone loading and drip was added last evening. With high dose Amiodarone, and with Cardizem the pt. is now rate controlled, but remains in the rhythm of A-fib/flutter. - 05/25/21 - Attempted Cardioversion for a third time was attempted and it was not successful. Pt. to be transferred to [facility] where her dramatic art teacher is. Arrangements with the transfer line were made by Dr. Arnold. Diltiazem and Amiodarone drips were resumed. (2) Elevated LFTs: Code(s): R79.89 - Other specified abnormal findings of blood chemistry Status: Chronic Assessment and Plan: -appears to be chronic. -transaminases were elevated on previous admission as well. At that time it was suspected that it was related to hepatic congestion. Total bilirubin is normal. -will continue to monitor. -previous hospitalization her hepatitis panel was negative. -metformin was held on previous admissions secondary to her transaminitis. We will continue this trend during this hospitalization. As she has a history of prediabetes if problematic we will initiate sliding scale insulin protocol with hypoglycemic protocol. However her fasting glucose this morning is 126. -no imaging was performed on previous admission with regards to transaminitis. If uptrending, or if patient becomes symptomatic, then will consider ultrasound of right upper quadrant. - Stable (3) Obesity (BMI 35.0-39.9 without comorbidity): Code(s): E66.9 - Obesity, unspecified Status: Acute Assessment and Plan: -patient's overall weight has decreased slightly from previous admission. We continue to recommend lifestyle changes. Time Spent With Patient Time with patient: 15 - 25 minutes Subjective Date/time seen: 05/25/21 0730 exam, 1345 documented This pt. was examined at the bedside this morning for her refractory A-fib/Flutter that she was taken to Cardiology for today and a third attempt at Cardioversion was attempted. The Hand Profiler, Dr. Arnold was unable to get her to convert into a normal sinus rhythm, and therefore she will be transferred to [facility] accepted by Dr. Young at this time for likely ablation. The pt. is without any current pain or dyspnea at rest, but does have some with exertion. She is disappointed that she was unable to be converted today. Review of Systems Review of Systems: All systems reviewed & are unremarkable except as noted in HPI and below Exam Const: General: comfortab
--- NOTE | 2021-05-25 13:48 | PM.TDS ---
Transfer Discharge Sum: Prov Provider Date of admission: 05/24/21 09:53 Primary care physician: Maame Wall, PAD[facility] Admitting clinician: Jud Elizabeth DO Consults: 05/23/21 04:20 Consult to Physician Routine Comment: Consulting Provider: Prashant Vera Reason for consultation: afib with rvr Has provider been notified: Yes DS: Admitting Diagnosis Discharge Date 05/25/2021 Admitting Diagnosis Atiral Fibrillation/Flutter with RVR DS: Discharge Diagnosis Discharge Diagnosis (1) Atrial fibrillation with RVR: Code(s): I48.91 - Unspecified atrial fibrillation Status: Acute Assessment and Plan: -acute on chronic. -continue Cardizem drip. -cardiology consult for further evaluation and definitive management. -echo performed April 24, 2021 shows normal left ventricular systolic function with an EF of 55%. No aortic valve stenosis was appreciated. -patient had DULCE with cardioversion April 25, 2021. At that time she had baptism of sinus rhythm after cardioversion. She was discharged home on metoprolol 75 mg b.i.d. at that time. After approximately several weeks she was continually having shortness of breath and side effects related to metoprolol, when it was found that she was actually back in atrial fibrillation with RVR and presented again for a 2nd cardioversion on May 19, 2021 that restored sinus rhythm. At that time metoprolol was discontinued due to concern for bronchospasm side effects and diltiazem 30 mg t.i.d. was ordered. Amiodarone was also continued. It was noted at that time that if she develops recurrence of AFib with RVR or tolerated the medication regimen poorly that she would likely require readmission for management, which brings us to where she is today. -Xarelto at home for anticoagulation. Currently holding for any potential procedures to be performed by Cardiology. -SCDs for DVT prophylaxis. -continue telemetry. - [id number]-Smip score of 3 - 05/24/21 - Amiodarone loading and drip was added last evening. With high dose Amiodarone, and with Cardizem the pt. is now rate controlled, but remains in the rhythm of A-fib/flutter. - 05/25/21 - Attempted Cardioversion for a third time was attempted and it was not successful. Pt. to be transferred to [facility] where her cooking appliance repair technician is. Arrangements with the transfer line were made by Dr. Arnold. Diltiazem and Amiodarone drips were resumed. (2) Elevated LFTs: Code(s): R79.89 - Other specified abnormal findings of blood chemistry Status: Chronic Assessment and Plan: -appears to be chronic. -transaminases were elevated on previous admission as well. At that time it was suspected that it was related to hepatic congestion. Total bilirubin is normal. -will continue to monitor. -previous hospitalization her hepatitis panel was negative. -metformin was held on previous admissions secondary to her transaminitis. We will continue this trend during this hospitalization. As she has a history of prediabetes if problematic we will initiate sliding scale insulin protocol with hypoglycemic protocol. However her fasting glucose this morning is 126. -no imaging was performed on previous admission with regards to transaminitis. If uptrending, or if patient becomes symptomatic, then will consider ultrasound of right upper quadrant. - Stable (3) Obesity (BMI 35.0-39.9 without comorbidity): Code(s): E66.9 - Obesity, unspecified Status: Acute Assessment and Plan: -patient's overall weight has decreased slightly from previous admission. We continue to recommend lifestyle changes. Transfer Discharge Sum: Med Medications Active and Home Medications: Home Medications metformin 1,000 mg PO 1700 04/24/21 [History Confirmed 05/23/21] Eliquis 5 mg PO Q12HR #60 tablet 04/26/21 [Rx Confirmed 05/23/21] furosemide 20 mg PO DAILY #30 tablet 04/26/21 [Rx Confirmed 05/23/21] pantoprazole 40 mg PO DAILY 05/18/21 [History Confir
[2021-05-25] MEDS: HYDROCORTISONE 1% 30 GM CREAM 1 APPLIC TOPICAL ×2 (14:28→18:06)
[2021-05-25 17:34] LABS: Glucose Point of Care 115 mg/dl (65-105)
[2021-05-25] MEDS: metFORMIN HCL XR 500 MG TAB.SR.24H 1000 MG PO (18:05)
[2021-05-25] MEDS: dilTIAZem 100 MG/100 ML 100 MG/100 ML BAG 10 MG IV CONT (20:42)
[2021-05-26] VITALS (23 sets, daily range): BP systolic 117–135; BP diastolic 76–103; PULSE 63–119; RESP 16–22; TEMP 36.3–36.9; O2SAT 98–100
[2021-05-26 01:49] LABS: Glucose Point of Care 126 mg/dl (65-105)
[2021-05-26] MEDS: DIPHENHYDRAMINE 1%/ZINC 0.1% CREAM 30 GM TUBE 1 APPLIC TOPICAL (02:11)
[2021-05-26 04:43] LABS: Basophils Absolute Auto 0.1 K/mm3 (0.0-0.1); Basophils Percent Auto 1.3 % (0.2-1.2); Eosinophils Absolute Auto 0.4 K/mm3 (0-0.3); Eosinophils Percent Auto 4.4 % (0-4.4); Hematocrit 39.6 % (37.0-47.0); Hemoglobin 12.9 g/dL (12.0-15.0); Immature Granulocyte Absolute 0.03 K/mm3 (0.00-0.031); Immature Granulocyte Percent A 0.3 % (0-0.5); Lymphocytes Absolute Auto 2.24 K/mm3 (0.9-3.2); Lymphocytes Percent Auto 22.7 % (18.3-44.2); Mean Corpuscular HGB Conc 32.6 g/dl (32-36); Mean Corpuscular Hemoglobin 29.7 pg (26-34); Mean Platelet Volume 11.2 fl (7.4-10.4); Monocytes Absolute Auto 0.9 K/mm3 (0.1-0.6); Monocytes Percent Auto 8.9 % (2.6-8.5); Neutrophils Absolute Auto 6.1 K/mm3 (1.3-6.7); Neutrophils Percent Auto 62.4 % (45.5-73.1); Platelet Count Result 218 k/mm3 (150-375); Red Blood Count 4.35 M/mm3 (4.2-5.4); Red Cell Distribution Width 13.2 % (11.5-14.5); White Blood Count 9.9 K/mm3 (4.5-10.0)
[2021-05-26 05:05] LABS: Alanine Aminotransferase 83 U/L (4-35); Albumin Level 3.7 g/dL (3.5-5.1); Alkaline Phosphatase 51 U/L (38-126); Anion Gap 7 mmol/L (8-16); Aspartate Amino Transferase 40 U/L (14-36); Bilirubin,Total 0.5 mg/dL (0.2-1.3); Blood Urea Nitrogen 13 mg/dL (7-17); Calcium 8.5 mg/dL (8.4-10.2); Carbon Dioxide 26 mmol/L (22-30); Chloride 107 mmol/L (98-107); Estimated CRCL calculation 104 ml/min; Estimated Glomerular Filt Rate > 60; Glucose 114 mg/dL (65-110); Magnesium 2.2 mg/dL (1.6-2.3); Potassium 3.6 mmol/L (3.4-5.0); Sodium 140 mmol/L (137-145)
[2021-05-26] MEDS: dilTIAZem 100 MG/100 ML 100 MG/100 ML BAG 10 MG IV CONT ×2 (06:34→15:45)
--- NOTE | 2021-05-26 08:43 | PM.PNCARD ---
Progress Note: A&P Assessment and Plan (1) Paroxysmal atrial fibrillation: Code(s): I48.0 - Paroxysmal atrial fibrillation Status: Acute Assessment and Plan: Patient with recent onset of AFib RVR in April 2021 status post cardioversion, then with a recurrence requiring another cardioversion on 05/19/2021. Admitted 05/23/2021 with a 2nd recurrence of AFib RVR. She has been on amiodarone but only for a few days so unable to call this an amiodarone failure. Difficult to control heart rate. Intolerant of metoprolol because of asthma. Patient has been referred to Dr. Givens, music internship. He recommended aggressive amiodarone loading with both p.o. and IV amiodarone and another cardioversion this week. He has moved her appointment to later this month to discuss ablation with her electively as an outpatient. If this plan is not successful then we can transfer her as an inpatient. Underwent cardioversion yesterday but unfortunately did not convert to sinus rhythm. She has been placed on a transfer list for [facility] for EP consult. Currently rate controlled in atrial flutter with IV and p.o amiodarone as well as IV diltiazem. (2) Chronic anticoagulation: Code(s): Z79.01 - termite renewal inspector (current) use of anticoagulants Status: Acute Assessment and Plan: Has been taking Eliquis and not missed any doses. No bleeding problems. (3) HTN (hypertension), benign: Code(s): I10 - Essential (primary) hypertension Status: Acute Assessment and Plan: Blood pressure is controlled. (4) Sleep apnea: Code(s): G47.30 - Sleep apnea, unspecified Status: Acute Assessment and Plan: Apnea link was abnormal suggesting sleep apnea. Will schedule follow-up with a sleep medicine doctor as an outpatient. Subjective Date/time seen: 05/26/21 08:43 Interval history: Patient with recent onset of AFib RVR in April 2021 status post cardioversion, then with a recurrence requiring another cardioversion on 05/19/2021, then discharged on amiodarone. N was readmitted 05/23/2021 with a 2nd recurrence of AFib RVR. She has been on amiodarone but only for a few days so unable to call this an amiodarone failure. Difficult to control heart rate. Intolerant of metoprolol because of asthma. Has been referred to Dr. Givens (music internship, [facility]) for consideration of ablation. I spoke to Dr. Givens, reviewed the situation. He recommended aggressive amiodarone loading with both p.o. and IV amiodarone and another cardioversion this week. He will move up her appointment and discuss ablation with her electively as an outpatient. If this plan is not successful then we can transfer her as an inpatient. Date of service 05/24/2021: Feeling better, less dyspneic, up and about in her room. Still on both look diltiazem drip and the amiodarone drip. Telemetry shows AFib rate 80-110. Apnea link: Abnormal. AHI 12.5, lowest O2 sat 73% Date of service 05/26/2021: She feels about the same today. Failed attempt at cardioversion yesterday. She is awaiting transfer to [facility] for EP c/s. Review of Systems Constitutional: Constitutional: Reports no additional constitutional complaints, Denies fatigue and Denies weakness Eyes: Eyes: Reports no additional eye complaints ENT: Denies epistaxis Cardiovascular: Cardiovascular: Denies chest pain, Reports pedal edema, Denies lightheadedness, Denies palpitations, Denies dyspnea and Denies dyspnea on exertion Respiratory: Respiratory: Reports no additional respiratory complaints, Denies dyspnea and Denies dyspnea on exertion Gastrointestinal: Gastrointestinal: Denies no additional gastrointestinal complaints (Has had some belching, now takes a PPI) and Denies abdominal pain Genitourinary: Genitourinary: Denies hematuria Musculoskeletal: Musculoskeletal: Reports no additional musculoskeletal complaints Integumentary/Breasts: Skin/Breast:
[2021-05-26] MEDS: AMIODARONE 360 MG/D5W 200 ML 360 MG/200 ML BAG 16.67 MG IV CONT ×2 (08:45→21:50)
[2021-05-26] MEDS: PANTOPRAZOLE 40 MG TABLET PO (08:48)
[2021-05-26] MEDS: APIXABAN 5 MG TABLET PO ×2 (08:48→20:13)
[2021-05-26] MEDS: AMIODARONE HCL 200 MG TABLET 400 MG PO ×2 (08:48→20:13)
[2021-05-26] MEDS: FUROSEMIDE 20 MG TABLET PO (08:48)
[2021-05-26] MEDS: HYDROCORTISONE 1% 30 GM CREAM 1 APPLIC TOPICAL ×3 (08:49→18:14)
[2021-05-26 12:04] LABS: Glucose Point of Care 97 mg/dl (65-105)
--- NOTE | 2021-05-26 15:32 | PM.IMPN ---
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 Status: Acute (3) Paroxysmal atrial fibrillation: Code(s): I48.0 - Paroxysmal atrial fibrillation Status: Acute (4) Morbid obesity with BMI of 40.0-44.9, adult: Code(s): E66.01 - Morbid (severe) obesity due to excess calories; Z68.41 - Body mass index [BMI] 40.0-44.9, adult Status: Acute (5) HTN (hypertension), benign: Code(s): I10 - Essential (primary) hypertension Status: Acute (6) Atrial fibrillation with RVR: Code(s): I48.91 - Unspecified atrial fibrillation Status: Acute (7) Elevated LFTs: Code(s): R79.89 - Other specified abnormal findings of blood chemistry Status: Chronic Additional Plan - 05/24/21 - Amiodarone loading and drip was added last evening. With high dose Amiodarone, and with Cardizem the pt. is now rate controlled, but remains in the rhythm of A-fib/flutter. - 05/25/21 - Attempted Cardioversion for a third time was attempted and it was not successful. Pt. 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 Arrangements with the transfer line were made by Dr. Arnold. Diltiazem and Amiodarone drips were resumed. 05/26/[address] [facility] for further care of the atrial fibrillation pending Continue supportive care Time Spent With Patient Time with patient: 25 - 35 minutes Subjective Date/time seen: 05/26/21 15:32 Patient doing okay heart rate remains uncontrolled she is pending transfer to higher level care center for treatment of her uncontrolled atrial fibrillation Time of my interview patient has no new complaints Exam Narrative: GEN: NAD, AAOx3, cooperative,. Obese HEENT: NCAT, MMM, EOMI Neck: no JVD Heart: S1S2 IRR Lungs: CTA B/l Ext: moves all, no cyanosis, no clubbing, no edema Neuro: Cranial nerves intact no focal neurological deficits appreciated on gross physical examination Objective Data Vital Signs Vital Signs: Vital Signs - 24 hr 05/25/21 16:00 05/25/21 16:18 05/25/21 18:00 Temperature 96.1 F L Pulse Rate 82 83 101 H Respiratory Rate 20 Blood Pressure 128/81 Pulse Oximetry 98 05/25/21 19:53 05/25/21 20:00 05/25/21 20:01 Temperature 97.2 F L Pulse Rate 117 H 106 H 87 Respiratory Rate 16 Blood Pressure 145/85 H Pulse Oximetry 99 05/25/21 22:00 05/25/21 23:35 05/26/21 00:00 Temperature 98.2 F Pulse Rate 77 101 H 100 Respiratory Rate 16 Blood Pressure 130/90 Pulse Oximetry 99 05/26/21 02:00 05/26/21 04:00 05/26/21 06:00 Temperature 97.9 F Pulse Rate 102 H 87 109 H Respiratory Rate 16 Blood Pressure 135/95 H Pulse Oximetry 99 05/26/21 07:59 05/26/21 08:00 05/26/21 08:26 Temperature 98.1 F Pulse Rate 97 102 H Respiratory Rate 22 H Blood Pressure 131/103 H Pulse Oximetry 98 98 05/26/21 08:45 05/26/21 08:48 05/26/21 10:00 Temperature Pulse Rate 113 H 113 H 115 H Respiratory Rate Blood Pressure Pulse Oximetry 05/26/21 12:00 05/26/21 12:07 05/26/21 14:00 Temperature 97.3 F L Pulse Rate 118 H 119 H 80 Respiratory Rate 20 Blood Pressure 131/91 H Pulse Oximetry 98 Intake/Output Intake/Output: Intake & Output 05/23/21 05/24/21 05/25/21 05/26/21 23:59 23:59 23:59 23:59 Intake Total 1300 2890 2620 1470 Output Total 1999 1500 2700 3100 Balance -700 2830 80 -1630 Meds/Results Medications: Active Medications Generic Name Dose Route Start Last Admin Trade Name Freq PRN Reason Stop Dose Admin Acetaminophen 1,000 mg 05/23/21 12:46 Acetaminophen 500 Mg Tablet PO Q6H PRN Pain Amiodarone HCl 400 mg 05/23/21 21:00 05/26/21 08:48 Amiodarone Hcl 200 Mg Tablet PO 06/22/21 20:59 400 mg Q12HR ELOINA Administration Apixaban 5 mg
[2021-05-26 17:58] LABS: Glucose Point of Care 132 mg/dl (65-105)
[2021-05-26] MEDS: metFORMIN HCL XR 500 MG TAB.SR.24H 1000 MG PO (18:14)
[2021-05-26] MEDS: diphenhydrAMINE HCl CAP 25 MG CAPSULE 50 MG PO (21:49)
[2021-05-27] VITALS (24 sets, daily range): BP systolic 120–152; BP diastolic 75–105; PULSE 72–120; RESP 15–22; TEMP 35.6–36.8; O2SAT 98–100
[2021-05-27 00:24] LABS: Glucose Point of Care 128 mg/dl (65-105)
[2021-05-27] MEDS: dilTIAZem 100 MG/100 ML 100 MG/100 ML BAG 10 MG IV CONT ×3 (01:41→21:24)
--- NOTE | 2021-05-27 03:03 | PC.NURSE ---
Spoke to Fartun at [facility] transfer center. Still no bed available at this time.
[2021-05-27 08:08] LABS: Glucose Point of Care 114 mg/dl (65-105)
[2021-05-27] MEDS: AMIODARONE 360 MG/D5W 200 ML 360 MG/200 ML BAG 16.67 MG IV CONT ×2 (09:23→21:23)
[2021-05-27] MEDS: AMIODARONE HCL 200 MG TABLET 400 MG PO ×2 (09:26→21:11)
[2021-05-27] MEDS: APIXABAN 5 MG TABLET PO ×2 (09:26→21:11)
[2021-05-27] MEDS: PANTOPRAZOLE 40 MG TABLET PO (09:27)
[2021-05-27] MEDS: FUROSEMIDE 20 MG TABLET PO (09:27)
[2021-05-27 11:52] LABS: Glucose Point of Care 99 mg/dl (65-105)
--- NOTE | 2021-05-27 12:44 | PM.PNCARD ---
Progress Note: A&P Additional Plan Persistent AF and A flutter, prior Hx of cardioversion with early recurrences, failed attempt of cardioversion during this hospital stay. Plan cont amiodarone infusion 0.5 mg/min and diltiazem 10 mg/hr and apixaban 5 mg BID Patient is pending transfer to [facility] Subjective Date/time seen: 05/27/21 12:44 Interval history: no acute event overnight Tele: AF with HR 80 to 110 and A flutter with HR 120 to 130 Review of Systems Review of Systems: All systems reviewed & are unremarkable except as noted in HPI and below Exam Const: General: comfortable and no acute distress Other: Able to lie flat Neck: Neck: supple and no JVD Carotids: no bruits Resp: Auscultation: clear to auscultation bilaterally and lung sounds not diminished Other: No chest wall tenderness Cardio: Rate: regular rate Rhythm: regular rhythm Heart sounds: no gallops, no murmurs and no rubs GI: GI Palp: Yes Soft to palpation and No Tenderness to palpation present (GI) Auscultation: normal bowel sounds Skin: General skin exam: normal color, rashes and/or lesions noted and no erythema Other: Warm Neuro: Cranial nerves: Yes Equal, round and reactive pupils present Speech: normal speech Other: No obvious focal deficit or facial asymmetry Extrem: General: no edema Other: Normal capillary refills Intact distal pulses. Objective Data Vital Signs Vital Signs: Vital Signs - 24 hr 05/26/21 14:00 05/26/21 15:45 05/26/21 15:50 Temperature 36.9 C Pulse Rate 80 111 H 63 Respiratory Rate 20 Blood Pressure 124/76 Pulse Oximetry 99 05/26/21 16:00 05/26/21 18:00 05/26/21 19:28 Temperature 36.8 C Pulse Rate 72 99 88 Respiratory Rate 16 Blood Pressure 117/76 Pulse Oximetry 99 05/26/21 20:00 05/26/21 20:13 05/26/21 21:50 Temperature Pulse Rate 87 88 88 Respiratory Rate Blood Pressure Pulse Oximetry 99 05/26/21 22:00 05/26/21 23:59 05/27/21 00:00 Temperature 36.6 C Pulse Rate 96 93 93 Respiratory Rate 16 Blood Pressure 120/82 120/82 Pulse Oximetry 100 100 05/27/21 01:41 05/27/21 01:58 05/27/21 03:54 Temperature 36.4 C Pulse Rate 93 77 80 Respiratory Rate 16 Blood Pressure 125/77 Pulse Oximetry 99 05/27/21 04:00 05/27/21 06:00 05/27/21 08:00 Temperature Pulse Rate 92 76 86 Respiratory Rate 20 Blood Pressure 125/77 Pulse Oximetry 99 98 05/27/21 08:12 05/27/21 08:26 05/27/21 09:23 Temperature 36.8 C Pulse Rate 96 85 Respiratory Rate 20 Blood Pressure 136/94 H Pulse Oximetry 98 98 05/27/21 09:26 05/27/21 10:00 05/27/21 12:08 Temperature Pulse Rate 109 H 86 120 H Respiratory Rate Blood Pressure Pulse Oximetry 05/27/21 12:27 Temperature 35.6 C L Pulse Rate 120 H Respiratory Rate 22 H Blood Pressure 152/105 H Pulse Oximetry 98 Intake/Output Intake/Output: Intake & Output 05/24/21 05/25/21 05/26/21 05/27/21 23:59 23:59 23:59 23:59 Intake Total 2890 2620 2630 840 Output Total 1500 2700 4450 2100 Balance 1390 -80 -1820 -1260 Meds/Results Medications: Active Medications Generic Name Dose Route Start Last Admin Trade Name Marielena PRN Reason Stop Dose Admin Acetaminophen 1,000 mg 05/23/21 12:46 Acetaminophen 500 Mg Tablet PO Q6H PRN Pain Amiodarone HCl 400 mg 05/23/21 21:00 05/27/21 09:26 Amiodarone Hcl 200 Mg Tablet PO 06/22/21 20:59 400 mg Q12HR ELOINA Administration Apixaban 5 mg 05/23/21 21:00 05/27/21 09:26 Apixaban 5 Mg Tablet PO 5 mg Q12HR ELOINA Administration Diphenhydramine HCl 50 mg 05/26/21 20:44 05/26/21 21:49 Diphenhydramine Hcl Cap 25 Mg Capsule PO 50 mg HS PRN Administration Sleep Furosemide 20 mg 05/24/21 09:00 05/27/21 09:27 Furosemide 20 Mg Tablet PO 20 mg DAILY ELOINA Administration Hydrocortisone 1 applic 05/25/21 13:00 05/27/21 12:16 Hydrocortisone 1% 30 Gm Cream TOPICAL Not Given
--- NOTE | 2021-05-27 16:28 | PM.IMPN ---
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 Status: Acute (3) Paroxysmal atrial fibrillation: Code(s): I48.0 - Paroxysmal atrial fibrillation Status: Acute (4) Morbid obesity with BMI of 40.0-44.9, adult: Code(s): E66.01 - Morbid (severe) obesity due to excess calories; Z68.41 - Body mass index [BMI] 40.0-44.9, adult Status: Acute (5) HTN (hypertension), benign: Code(s): I10 - Essential (primary) hypertension Status: Acute (6) Atrial fibrillation with RVR: Code(s): I48.91 - Unspecified atrial fibrillation Status: Acute (7) Elevated LFTs: Code(s): R79.89 - Other specified abnormal findings of blood chemistry Status: Chronic Additional Plan - 05/24/21 - Amiodarone loading and drip was added last evening. With high dose Amiodarone, and with Cardizem the pt. is now rate controlled, but remains in the rhythm of A-fib/flutter. - 05/25/21 - Attempted Cardioversion for a third time was attempted and it was not successful. Pt. 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 Arrangements with the transfer line were made by Dr. Arnold. Diltiazem and Amiodarone drips were resumed. 05/26/21 transfer to [facility] for further care of the atrial fibrillation pending Continue supportive care 05/27/21 cont supportive care persistent afib cont amiodarone infusion 0.5 mg/min cont diltiazem 10 mg/hr and apixaban 5 mg BID Patient is pending transfer to [facility] Subjective Date/time seen: 05/27/21 16:28 no overnight events, pt disappointed that she is still waiting for transfer Exam Narrative: GEN: NAD, AAOx3, cooperative,. Obese HEENT: NCAT, MMM, EOMI Neck: no JVD Heart: S1S2 IRR Lungs: CTA B/l Ext: moves all, no cyanosis, no clubbing, no edema Neuro: Cranial nerves intact no focal neurological deficits appreciated on gross physical examination Objective Data Vital Signs Vital Signs: Vital Signs - 24 hr 05/26/21 18:00 05/26/21 19:28 05/26/21 20:00 Temperature 98.2 F Pulse Rate 99 88 87 Respiratory Rate 16 Blood Pressure 117/76 Pulse Oximetry 99 99 05/26/21 20:13 05/26/21 21:50 05/26/21 22:00 Temperature Pulse Rate 88 88 96 Respiratory Rate Blood Pressure Pulse Oximetry 05/26/21 23:59 05/27/21 00:00 05/27/21 01:41 Temperature 97.8 F Pulse Rate 93 93 93 Respiratory Rate 16 Blood Pressure 120/82 120/82 Pulse Oximetry 100 100 05/27/21 01:58 05/27/21 03:54 05/27/21 04:00 Temperature 97.6 F Pulse Rate 77 80 92 Respiratory Rate 16 Blood Pressure 125/77 125/77 Pulse Oximetry 99 99 05/27/21 06:00 05/27/21 08:00 05/27/21 08:12 Temperature Pulse Rate 76 86 Respiratory Rate 20 Blood Pressure Pulse Oximetry 98 98 05/27/21 08:26 05/27/21 09:23 05/27/21 09:26 Temperature 98.2 F Pulse Rate 96 85 109 H Respiratory Rate 20 Blood Pressure 136/94 H Pulse Oximetry 98 05/27/21 10:00 05/27/21 12:00 05/27/21 12:08 Temperature Pulse Rate 86 117 H 120 H Respiratory Rate Blood Pressure Pulse Oximetry 05/27/21 12:27 05/27/21 14:00 Temperature 96.1 F L Pulse Rate 120 H 108 H Respiratory Rate 22 H Blood Pressure 152/105 H Pulse Oximetry 98 Intake/Output Intake/Output: Intake & Output 05/24/21 05/25/21 05/26/21 05/27/21 23:59 23:59 23:59 23:59 Intake Total 2890 2620 2630 1080 Output Total 1500 2700 4450 2100 Balance 1390 -80 -1820 -1020 Meds/Results Medications: Active Medications Generic Name Dose Route Start Last Admin Trade Name Freq PRN Reason Stop Dose Admin Acetaminophen 1,000 mg 05/23/21 12:46 Acetaminophen 500 Mg Tablet PO Q6H PRN Pain Amiodarone HCl 400 mg 05/23/21 21:00 05/27/21 09:26 Amiodarone Hcl 20
[2021-05-27 16:36] LABS: Glucose Point of Care 100 mg/dl (65-105)
[2021-05-27] MEDS: metFORMIN HCL XR 500 MG TAB.SR.24H 1000 MG PO (17:37)
[2021-05-27 18:43] LABS: EDCOVIDSCREEN Negative (Negative)
[2021-05-27 19:48] LABS: Glucose Point of Care 176 mg/dl (65-105)
[2021-05-27] MEDS: diphenhydrAMINE HCl CAP 25 MG CAPSULE 50 MG PO (21:14)
== END 2021-05-27 23:35 | disposition short-term general hospital (02) | DRG 310 ==
LOC: ANHED 03:11 → ANHIMU 04:43
PROVIDERS: Hospitalist; Nurse Practitioner Adult Health; Admitting Provider Internal Medicine; Emergency Provider Emergency Medicine; PCP Physician Assistant; Visit Provider Internal Medicine Cardiovascular Disease
PROC: 5A2204Z Restoration of Cardiac Rhythm, Single (ICD-10-PCS; principal; 2021-05-25 10:00)
DX: I48.20 Chronic atrial fibrillation, unspecified (principal); I48.92 Unspecified atrial flutter; R73.03 Prediabetes; R06.09 Other forms of dyspnea; R79.89 Other specified abnormal findings of blood chemistry; Z20.822 Contact with and (suspected) exposure to COVID-19; E66.01 Morbid (severe) obesity due to excess calories; G47.30 Sleep apnea, unspecified; I10 Essential (primary) hypertension; Z90.49 Acquired absence of other specified parts of digestive tract; Z79.01 Long term (current) use of anticoagulants; Z79.899 Other long term (current) drug therapy; Z68.38 Body mass index [BMI] 38.0-38.9, adult
CPT/HCPCS: 36415; 71045; 80053; 80162; 82948; 83735; 85025; 85610; 85730; 87426; 92960; 93005; 94762; 96365; 96366; 96368; 96376; 99285; A9270; C9803; G0378; J0282; J2250; J3010; J7030; J7040

== ENCOUNTER → 2021-06-13 01:53 | Outpatient (CLI) | payer OTHER, BC, SELFPAY ==
[2021-06-13 13:58] LABS: SARS-CoV-2 RNA PCR Negative
== END ==
PROVIDERS: PCP Physician Assistant
DX: I48.91 Unspecified atrial fibrillation (principal); Z20.822 Contact with and (suspected) exposure to COVID-19
CPT/HCPCS: C9803; U0003; U0005

== ENCOUNTER → 2021-07-01 00:08 | Outpatient (CLI) | payer OTHER, BC, SELFPAY ==
[2021-07-01 13:46] LABS: SARS-CoV-2 RNA PCR Negative
== END ==
DX: Z20.822 Contact with and (suspected) exposure to COVID-19 (principal)
CPT/HCPCS: C9803; U0003; U0005

== ENCOUNTER 2021-08-16 08:58 | Outpatient (CLI) | payer OTHER, BC, SELFPAY ==
--- NOTE | ~2021-08-16 | MM_ITS ---
EXAMINATION: MM screening [facility] BI w ranjit HISTORY: Screening TECHNIQUE: Craniocaudal and mediolateral oblique 3-D tomosynthesis images were obtained and synthetic 2-D images were generated. CAD analysis was submitted and interpreted. COMPARISON: Comparison to multiple prior studies sequentially, with oldest reviewed study dated 11/19. BREAST PARENCHYMAL COMPOSITION: There are scattered areas of fibroglandular density. FINDINGS: There is no evidence of suspicious mass, calcification, or architectural distortion to sugg est malignancy in either breast. There has been no suspicious interval change. IMPRESSION: 1. No mammographic evidence of malignancy. 2. Recommend routine screening mammography in one year. BI-RADS Category 1: Negative Reviewed, dictated and finalized at location A.
== END 2021-08-16 08:59 | disposition home or self-care (01) ==
PROVIDERS: PCP Physician Assistant; Visit Provider Physician Assistant
DX: Z12.31 Encounter for screening mammogram for malignant neoplasm of breast (principal)
CPT/HCPCS: 77063; 77067

== ENCOUNTER 2021-11-23 10:30 | Outpatient (RCR) | payer OTHER, BC, SELFPAY | END 2021-12-26 08:52 | disposition home or self-care (01) | LOC: ANHDMC 10:30 | PROVIDERS: PCP Physician Assistant; Visit Provider Physician Assistant | DX: R73.09 Other abnormal glucose (principal); Z71.89 Other specified counseling | CPT/HCPCS: G0108 ==

== ENCOUNTER 2022-10-26 08:07 | Outpatient (CLI) | payer OTHER, BC, SELFPAY ==
--- NOTE | ~2022-10-26 | MM_ITS ---
EXAMINATION: MM screening [facility] w ranjit HISTORY: Screening mammogram TECHNIQUE: Craniocaudal and mediolateral oblique 3-D tomosynthesis images were obtained and synthetic 2-D images were generated. CAD analysis was submitted and interpreted. COMPARISON: 08/16/2021, 04/20/2020, bilateral screening mammogram examinations BREAST PARENCHYMAL COMPOSITION: The breasts are almost entirely fatty. FINDINGS: There is no evidence of suspicious mass, calcification, or architectural distortion to sugg est malignancy in either breast. There has been no suspicious interval change. IMPRESSION: 1. No mammographic evidence of malignancy. 2. Recommend routine screening mammography in one year. BI-RADS Category 1: Negative Reviewed, dictated and finalized at location A.
== END 2022-10-26 08:08 | disposition home or self-care (01) ==
LOC: ANHIMG 08:08
PROVIDERS: PCP Physician Assistant; Visit Provider Physician Assistant
DX: Z12.31 Encounter for screening mammogram for malignant neoplasm of breast (principal)
CPT/HCPCS: 77063; 77067